=== PATIENT | female | born 1995 | race Caucasian/White ===

== ENCOUNTER 2018-01-30 23:27 | Observation (INO) | payer OTHER ==
[2018-01-31 00:17] LABS: Appearance,Urine Cloudy (Clear); Bacteria,Urine Occasional /hpf; Bilirubin,Urine Negative (Negative); Blood,Urine Large (Negative); Color,Urine Light Red; Glucose,Urine (UA) Negative (Negative); Ketones,Urine Negative (Negative); Leukocyte Esterase,Urine Large (Negative); Mucus,Urine Rare /hpf; Nitrite,Urine Negative (Negative); Protein,Urine 2+ (Negative); RBC,Urine >182 /hpf (0-5); Specific Gravity,Urine 1.013 (1.001-1.035); Squamous Epithelial Cell,Urine 49 /hpf (0-4); Urobilinogen,Urine <2.0 mg/dL (<2.0); WBC,Urine 25 /hpf (0-5)
[2018-01-31] MEDS ORDERED: SODIUM CHLORIDE 0.9% 1,000 ML IV ONE (01:04)
[2018-01-31] MEDS: SODIUM CHLORIDE 0.9% 1,000 ML IV SCH ×2 (01:28→17:29)
[2018-01-31 01:33] LABS: Basophils # (A) 0.1 k/uL (0-0.2); Basophils % (A) 1 %; Eosinophils # (A) 0.4 k/uL (0-0.7); Eosinophils % (A) 4 %; HCT 39.6 % (34.0-46.0); HGB 13.2 gm/dL (11.4-16.0); Lymphocytes % (A) 29 %; MCH 28.3 pg (25.0-35.0); MCHC 33.4 g/dL (31.0-37.0); MCV 84.8 fL (80.0-100.0); Mean Platelet Volume 7.3; Monocytes # (A) 0.4 k/uL (0-1.0); Monocytes % (A) 3 %; Neutrophils # (A) 6.6 k/uL (1.3-7.7); Neutrophils % (A) 63 %; Platelet Count 234 k/uL (150-450); RBC 4.67 m/uL (3.80-5.40); RDW 13.8 % (11.5-15.5); WBC 10.5 k/uL (3.8-10.6)
[2018-01-31 01:41] LABS: Albumin 4.2 g/dL (3.5-5.0); Calcium 9.6 mg/dL (8.4-10.2); Potassium 3.7 mmol/L (3.5-5.1); Total Bilirubin 0.3 mg/dL (0.2-1.3); Total Protein 7.5 g/dL (6.3-8.2)
--- NOTE | 2018-01-31 01:43 | ED ---
Female Urogenital HPI - General Chief complaint: Urogenital Stated complaint: Female Time Seen by Provider: 01/31/18 00:34 Source: patient, RN notes reviewed, old records reviewed Mode of arrival: ambulatory Limitations: no limitations - History of Present Illness Initial comments: This patient is a 22-year-old female presents raise department today she complained of blood in urine for the past 4 days. She states she has no pain when she urinates. Does not feel like a UTI. She states she has no back pain. She does relate that her family has a history of polycystic kidney disease. She has never been tested for PCKD. Patient denies any recent fever, chills, shortness of breath, chest pain, back pain, abdominal pain, nausea vomiting, numbness or tingling, dysuria, constipation or diarrhea, headaches or visual changes, or any other current symptoms - Related Data Previous Rx's Medication Instructions Recorded Nitrofurantoin Monohyd/M-Cryst 100 mg PO Q12HR #14 cap 07/21/15 [Macrobid] Phenazopyridine HCl [Pyridium] 100 mg PO TID PRN #6 tab 07/21/15 Allergies Allergy/AdvReac Type Severity Reaction Status Date / Time No Known Allergies Allergy Verified 07/20/15 22:38 Review of Systems ROS Statement: Those systems with pertinent positive or pertinent negative responses have been documented in the HPI. ROS Other: All systems not noted in ROS Statement are negative. Past Medical History Past Medical History: No Reported History History of Any Multi-Drug Resistant Organisms: None Reported Past Surgical History: Adenoidectomy, Tonsillectomy Past Anesthesia/Blood Transfusion Reactions: No Reported Reaction Past Psychological History: No Psychological Hx Reported Smoking Status: Never smoker Past Alcohol Use History: None Reported Past Drug Use History: None Reported - Past Family History Mother Family Medical History: Cancer Additional Family Medical History / Comment(s): General Exam - General Exam Comments Initial Comments: Pleasant 22-year-old female. No distress. Limitations: no limitations General appearance: alert, in no apparent distress Head exam: Present: atraumatic, normocephalic, normal inspection Eye exam: Present: normal appearance, PERRL, EOMI. Absent: scleral icterus, conjunctival injection, periorbital swelling ENT exam: Present: normal exam, mucous membranes moist Neck exam: Present: normal inspection. Absent: tenderness, meningismus, lymphadenopathy Respiratory exam: Present: normal lung sounds bilaterally. Absent: respiratory distress, wheezes, rales, rhonchi, stridor Cardiovascular Exam: Present: regular rate, normal rhythm, normal heart sounds. Absent: systolic murmur, diastolic murmur, rubs, gallop, clicks GI/Abdominal exam: Present: soft, normal bowel sounds. Absent: distended, tenderness, guarding, rebound, rigid Extremities exam: Present: normal inspection, full ROM, normal capillary refill. Absent: tenderness, pedal edema, joint swelling, calf tenderness Back exam: Present: normal inspection Neurological exam: Present: alert, oriented X3, CN II-XII intact Psychiatric exam: Present: normal affect, normal mood Course Vital Signs 01/30/18 23:49 Temperature 97.3 F L Pulse Rate 89 Respiratory 16 Rate Blood Pressure 129/89 O2 Sat by Pulse 98 Oximetry Medical Decision Making - Medical Decision Making This pleasant 22-year-old female presents emergency room with bloody urine for the past 4 days.. Masses was obtained and shows over 182 red blood cells, 30 white blood cells. It is contaminated with multiple squamous epithelial cells. She states that she has no pain with this blood in her urine. No dysuria. No back pain. I discussed etiologies would likely be related to infection, kidney stone or kidney disease. She patient then related that she has a family history of polycystic injury disease but is never been tested. The spleen patient was given IV fluids and lab work obtained. Patient's BUN/creatinine are noted to be slightly elevated. CAT scan of the abdomen and pelvis was performed without contrast. Evidence of multiple cysts with bilateral kidneys. I did inform the patient and she is very distraught about the finding of polycystic kidney disease as for her as well. I discussed that this have elevated creatinine at like the patient to be admitted for IV fluids, and consult to nephrology for management. Patient agrees to admission. Also we did do a culture of the urine for the rib and white blood cells. Per . we'll start the patient on Rocephin to cover for urinary tract infection. - Lab Data Result diagrams: 01/31/18 01:24 01/31/18 01:24 Lab Results 01/30/18 01/30/18 01/31/18 Range/Units 23:53 23:53 01:24 WBC (3.8-10.6) k/uL RBC (3.80-5.40) m/uL Hgb (11.4-16.0) gm/dL Hct (34.0-46.0) % MCV (80.0-100.0) fL MCH (25.0-35.0) pg MCHC (31.0-37.0) g/dL RDW (11.5-15.5) % Plt Count (150-450) k/uL Neutrophils % % Lymphocytes % % Monocytes % % Eosinophils % % Basophils % % Neutrophils # (1.3-7.7) k/uL Lymphocytes # (1.0-4.8) k/uL Monocytes # (0-1.0) k/uL Eosinophils # (0-0.7) k/uL Basophils # (0-0.2) k/uL Sodium 143 (137-145) mmol/L Potassium 3.7 (3.5-5.1) mmol/L Chloride 105 (98-107) mmol/L Carbon Dioxide 27 (22-30) mmol/L Anion Gap 11 mmol/L BUN 24 H (7-17) mg/dL Creatinine 1.70 H (0.52-1.04) mg/dL Est GFR (CKD-EPI)AfAm 49 (>60 ml/min/1.73 sqM) Est GFR (CKD-EPI)NonAf 42 (>60 ml/min/1.73 sqM) Glucose 96 (74-99) mg/dL Calcium 9.6 (8.4-10.2) mg/dL Total Bilirubin 0.3 (0.2-1.3) mg/dL AST 20 (14-36) U/L ALT 21 (9-52) U/L Alkaline Phosphatase 69 (38-126) U/L Total Protein 7.5 (6.3-8.2) g/dL Albumin 4.2 (3.5-5.0) g/dL Amylase 67 (30-110) U/L Lipase 222 (23-300) U/L Urine Color Light Red Urine Appearance Cloudy H (Clear) Urine pH 6.0 (5.0-8.0) Ur Specific [place] 1.013 (1.001-1.035) Urine Protein 2+ H (Negative) Urine Glucose (UA) Negative (Negative) Urine Ketones Negative (Negative) Urine Blood Large H (Negative) Urine Nitrite Negative (Negative) Urine Bilirubin Negative (Negative) Urine Urobilinogen <2.0 (<2.0) mg/dL Ur Leukocyte Esterase Large H (Negative) Urine RBC >182 H (0-5) /hpf Urine WBC 25 H (0-5) /hpf Urine WBC Clumps Many H (None) /hpf Ur Squamous Epith Cells 49 H (0-4) /hpf Urine Bacteria Occasional H (None) /hpf Urine Mucus Rare H (None) /hpf Urine HCG, Qual Not Detected (Not Detectd) 01/31/18 Range/Units 01:24 WBC 10.5 (3.8-10.6) k/uL RBC 4.67 (3.80-5.40) m/uL Hgb 13.2 (11.4-16.0) gm/dL Hct 39.6 (34.0-46.0) % MCV 84.8 (80.0-100.0) fL MCH 28.3 (25.0-35.0) pg MCHC 33.4 (31.0-37.0) g/dL RDW 13.8 (11.5-15.5) % Plt Count 234 (150-450) k/uL Neutrophils % 63 % Lymphocytes % 29 % Monocytes % 3 % Eosinophils % 4 % Basophils % 1 % Neutrophils # 6.6 (1.3-7.7) k/uL Lymphocytes # 3.0 (1.0-4.8) k/uL Monocytes # 0.4 (0-1.0) k/uL Eosinophils # 0.4 (0-0.7) k/uL Basophils # 0.1 (0-0.2) k/uL Sodium (137-145) mmol/L Potassium (3.5-5.1) mmol/L Chloride (98-107) mmol/L Carbon Dioxide (22-30) mmol/L Anion Gap mmol/L BUN (7-17) mg/dL Creatinine (0.52-1.04) mg/dL Est GFR (CKD-EPI)AfAm (>60 ml/min/1.73 sqM) Est GFR (CKD-EPI)NonAf (>60 ml/min/1.73 sqM) Glucose (74-99) mg/dL Calcium (8.4-10.2) mg/dL Total Bilirubin (0.2-1.3) mg/dL AST (14-36) U/L ALT (9-52) U/L Alkaline Phosphatase (38-126) U/L Total Protein (6.3-8.2) g/dL Albumin (3.5-5.0) g/dL Amylase (30-110) U/L Lipase (23-300) U/L Urine Color Urine Appearance (Clear) Urine pH (5.0-8.0) Ur Specific [place] (1.001-1.035) Urine Protein (Negative) Urine Glucose (UA) (Negative) Urine Ketones (Negative) Urine Blood (Negative) Urine Nitrite (Negative) Urine Bilirubin (Negative) Urine Urobilinogen (<2.0) mg/dL Ur Leukocyte Esterase (Negative) Urine RBC (0-5) /hpf Urine WBC (0-5) /hpf Urine WBC Clumps (None) /hpf Ur Squamous Epith Cells (0-4) /hpf Urine Bacteria (None) /hpf Urine Mucus (None) /hpf Urine HCG, Qual (Not Detectd) - Radiology Data Radiology results: report reviewed Physical x-rays reviewed and within normal limits. Large lobulated kidneys consistent with adult type polycystic kidney disease. This appears to be similar to old computed tomography scan. Multiple bilateral renal colliculi and are probably increased in number and size compared to old exam. No evidence of renal obstruction. Normal appendix noted. Disposition Clinical Impression: Polycystic kidney disease, Urinary tract infection, Decreased GFR Disposition: ADMITTED IP TO THIS [facility] Condition: Stable Referrals: None,Stated [Primary Care Provider] - 1-2 days Time of Disposition: 02:13
--- NOTE | 2018-01-31 02:01 | CT ---
EXAMINATION TYPE: CT abdomen pelvis wo con DATE OF EXAM: 01/31/2018 COMPARISON: NONE HISTORY: Blood in urine, pain CT DLP: 574.60 mGycm Automated exposure control for dose reduction was used. TECHNIQUE: Helical acquisition of images was performed from the lung bases through the pelvis. FINDINGS: Lung bases are clear. There is no pleural effusion. There is no pericardial effusion. Liver spleen pancreas gallbladder appear normal. Bile ducts are not dilated. There is no adrenal mass. There is lobulated contour both kidneys consistent with multiple cysts. The re are bilateral renal multiple calculi. These measure up to 6 mm. Ureters do not appear dilated. There is an IUD. Bladder distends smoothly. There is no free fluid. I see no intestinal wall thickeni ng. There are no dilated loops. There is no sign of appendicitis. Appendix appears normal. I see no b sheyla destructive process. There is no retroperitoneal adenopathy. IMPRESSION: ENLARGED LOBULATED KIDNEYS CONSISTENT WITH ADULT TYPE POLYCYSTIC KIDNEY DISEASE. THIS APPEARS SIMILAR TO OLD CT SCAN. MULTIPLE BILATERAL RENAL CALCULI ARE PROBABLY INCREASED IN NUMBER AND SIZE COMPARED TO OLD EXAM. NO EVIDENCE OF RENAL OBSTRUCTION. NORMAL APPENDIX.
[2018-01-31] MEDS ORDERED: cefTRIAXone IN SWFI 1,000 MG/10 ML SYRINGE IVP STA (02:09)
[2018-01-31] MEDS ORDERED: NALOXONE 0.4 MG/ML 1 ML VIAL IV PRN (02:14)
[2018-01-31] MEDS ORDERED: Acetaminophen-Codeine 300-30mg TAB PO PRN (02:14)
[2018-01-31] MEDS ORDERED: ACETAMINOPHEN TAB 325 MG TAB PO PRN (02:14)
[2018-01-31] MEDS ORDERED: oxyCODONE-APAP 5-325MG 1 EACH TAB PO PRN (02:14)
[2018-01-31] MEDS ORDERED: ONDANSETRON 4 MG/2 ML VIAL IVP PRN (02:14)
--- NOTE | 2018-01-31 03:55 | P.HPIM ---
History of Present Illness H&P Date: 01/31/18 Chief Complaint: blood in the urine This is a 22-year-old female without any significant past medical history currently not taking any medications who came to emergency department with complaint of blood in the urine. Problem started about 3 days ago. Blood is visible in the urine with every urination and throat urination. She denies any flank pain, burning with urination, straining, suprapubic pain, vaginal bleeding. She also denies any fever chills nausea or vomiting. Patient has IUD and certain that she is not vaginal bleeding. She denies any previous episodes of blood in her urine. Denies any trauma or injuries. Eyes taking any NSAIDs or any other medications including czoy-dxy-urueyyi medications. Eyes any previous problems with bleeding or easy bruising. He does not have a primary care doctor and does not have any regular medical follow-up circumflex checkups. In the emergency department her urine analysis show significant amount of red blood cells, leukocyte esterase, WBCs in the urine. Blood work was significant for elevated creatinine to 1.7 and the last one was normal about [address] of abdomen and pelvis showed enlarged polycystic kidneys compatible with adult polycystic kidney disease. Patient states that her brother had similar condition and that he last year at the age of 21. She is not aware of any other family members having any kidney problems or being on dialysis. Otherwise patient noticed some frontal headaches for the last few days but no other complaints. Review of Systems Constitutional: Denies anorexia, Denies chills, Denies fatigue, Denies fever, Denies malaise, Denies night sweats Eyes: denies blurred vision, denies diplopia, denies photophobia, denies loss of vision Ears, nose, mouth and throat: Reports headache, Denies epistaxis Cardiovascular: Denies chest pain, Denies leg edema, Denies lightheadedness, Denies paroxysmal nocturnal dyspnea Respiratory: Denies cough, Denies dyspnea Gastrointestinal: Denies abdominal pain, Denies constipation, Denies diarrhea, Denies heartburn Genitourinary: Reports as per HPI Menstruation: Reports as per HPI Musculoskeletal: Denies frequent falls, Denies hot joints, Denies redness of joints Integumentary: Denies rash Neurological: Denies change in speech, Denies double vision, Denies loss of vision Psychiatric: Denies anxiety, Denies depression Endocrine: Denies cold intolerance, Denies fatigue, Denies flushing, Denies heat intolerance Hematologic/Lymphatic: Denies easy bleeding Past Medical History Past Medical History: No Reported History History of Any Multi-Drug Resistant Organisms: None Reported Past Surgical History: Adenoidectomy, Tonsillectomy Past Anesthesia/Blood Transfusion Reactions: No Reported Reaction Past Psychological History: No Psychological Hx Reported Smoking Status: Never smoker Past Alcohol Use History: None Reported Past Drug Use History: None Reported - Past Family History Mother Family Medical History: Cancer Additional Family Medical History / Comment(s): Medications and Allergies Home Medications Medication Instructions Recorded Confirmed Type Nitrofurantoin Monohyd/M-Cryst 100 mg PO Q12HR #14 cap 07/21/15 Rx [Macrobid] Phenazopyridine HCl [Pyridium] 100 mg PO TID PRN #6 tab 07/21/15 Rx Allergies Allergy/AdvReac Type Severity Reaction Status Date / Time No Known Allergies Allergy Verified 07/20/15 22:38 Physical Exam Vitals: Vital Signs Temp Pulse Resp BP Pulse Ox 01/31/18 03:24 75 18 124/75 100 01/30/18 23:49 97.3 F L 89 16 129/89 98 Intake and Output 01/30/18 01/30/18 01/31/18 14:59 22:59 06:59 Other: Weight 77.111 kg Patient Weight 01/31/18 06:59 Weight 77.111 kg - Constitutional General appearance: no acute distress, obese - EENT Eyes: EOMI, PERRLA, no scleral icterus ENT: normal oropharynx - Neck Neck: no lymphadenopathy, no thyromegaly - Respiratory Respiratory: bilateral: CTA - Cardiovascular Rhythm: regular Heart sounds: normal: S1, S2 - Gastrointestinal General gastrointestinal: normal bowel sounds, no organomegaly, soft - Integumentary Integumentary: pale, no rash - Neurologic Neurologic: CNII-XII intact - Musculoskeletal Musculoskeletal: strength equal bilaterally - Psychiatric Psychiatric: A&O x's 3, appropriate affect Results CBC & Chem 7: 01/31/18 01:24 01/31/18 01:24 Labs: Abnormal Lab Results - Last 24 Hours (Table) 01/30/18 01/31/18 Range/Units 23:53 01:24 BUN 24 H (7-17) mg/dL Creatinine 1.70 H (0.52-1.04) mg/dL Urine Appearance Cloudy H (Clear) Urine Protein 2+ H (Negative) Urine Blood Large H (Negative) Ur Leukocyte Esterase Large H (Negative) Urine RBC >182 H (0-5) /hpf Urine WBC 25 H (0-5) /hpf Urine WBC Clumps Many H (None) /hpf Ur Squamous Epith Cells 49 H (0-4) /hpf Urine Bacteria Occasional H (None) /hpf Urine Mucus Rare H (None) /hpf CT scan - abdomen: report reviewed Thrombosis Risk Factor Assmnt - DVT/VTE Prophylaxis DVT/VTE Prophylaxis: Mechanical Prophylaxis ordered Assessment and Plan (1) Acute kidney injury Narrative/Plan: She has elevated creatinine with normal baseline creatinine 4 years ago. This could represent C daily due to polycystic kidney disease versus AK Plan is for IV fluid hydration, strict I's and O's, postvoiding residual check, nephrology consult Current Visit: Yes Status: Acute Priority: High Code(s): N17.9 - ACUTE KIDNEY FAILURE, UNSPECIFIED SNOMED Code(s): 70984553 (2) Polycystic kidney disease Narrative/Plan: This is a new diagnosis Nephrology has been consulted Possible component of urinary tract infection as well without systemic toxicity Will change antibiotic to oral ciprofloxacin renal function adjusted No family history of renal problems except in her brother, no history of known aneurysms or intracranial bleeding but given the history of a headache for a few days may consider screening Current Visit: Yes Status: Acute Priority: High Code(s): Q61.3 - POLYCYSTIC KIDNEY, UNSPECIFIED SNOMED Code(s): 01177425
[2018-01-31] MEDS: CIPROFLOXACIN HCL 250 MG TAB PO SCH (10:26)
--- NOTE | 2018-01-31 19:33 | P.PN ---
Progress Note - Text Progress Note Date: 01/31/18 Hospitalist interval note Called by nursing as patient wanted to be discharged. Patient has stated Dr. Mathur subjective likely go home today however no formal dictation is available from Dr. Mathur at this time. Nursing had called Dr. Mathur who stated that she did say patient may be discharged this evening, but left discretion to the admitting physician. After review of her records it appears patient likely has polycystic kidney disease and a urinary tract infection. There could be concern for possible infected cyst. She also has no insurance and no family doctor for follow-up labs. When up and discussed with the patient that I think it would be in her best benefit to stay overnight tonight with repeat kidney function in the morning. We can also assist with having case management social work meet with her tomorrow in regards to obtaining health care insurance and information on free clinic. Patient still interested in leaving, I stated that I did not think this was in her best interest and we need to ensure that her kidney function is stable. We are also waiting on urine cultures. Patient is not stable to discharge at this point in time but likely will be able to go home at some point tomorrow. I will place consult for social work and case management. Giovanna Merchant, DO
--- NOTE | 2018-01-31 22:32 | CONS ---
CONSULTATION DATE OF SERVICE: 01/31/2018. REASON FOR CONSULT: Renal failure, hematuria. HISTORY OF PRESENT ILLNESS: Patient is a 22-year-old female who was admitted to the hospital with a history of blood in her urine, which she has had on and off for about 2 to 3 days. The patient denied any pain. She denied any previous history of blood in the urine. Recently patient has not had any urinary tract infections. She had a CT scan of the abdomen and pelvis, which showed polycystic kidneys. Both kidneys were enlarged. There were bilateral renal calculi seen also. Serum creatinine was 1.7 mg/dL. We have a previous creatinine in 2013 of 1.07. Currently patient is completely asymptomatic and is asking to go home. Her brother also had polycystic kidney disease and one of her aunts, who is on hemodialysis, has polycystic kidney disease as well. PAST MEDICAL HISTORY: None. SURGICAL HISTORY: Adenoidectomy and tonsillectomy. SOCIAL HISTORY: Negative for smoking, drug abuse, or alcohol abuse. HOME MEDICATIONS: Macrobid recently. ALLERGIES: None. REVIEW OF SYSTEMS: As per HPI. Other systems negative. PHYSICAL EXAMINATION: Patient is comfortable, awake, not in any acute distress. Blood pressure is 128/80, heart rate 70 per minute. Patient is afebrile. Examination of the heart S1, S2. Examination lungs bilateral breath sounds are heard. Abdomen is soft, nontender. Examination of the lower extremities shows no evidence of edema. [employer] exam is grossly intact. LAB: Serum creatinine 1.7, sodium 143, potassium 3.7, hemoglobin 13.2 g/dL. UA shows 2+ protein, leukocyte esterase large, WBCs 25. ASSESSMENT: 1. Acute kidney injury, most likely prerenal. May continue with IV fluids, however, patient is asking to be discharged. She could go home this evening and follow up in the office in 1 week. She should increase her oral fluid intake and continue with the antibiotics to complete a course. We will follow up on the urine cultures. 2. Polycystic kidney disease with positive family history including an aunt on dialysis. The patient will need to follow up as outpatient. 3. Nephrolithiasis noted on CT scan, currently asymptomatic with no evidence of hydronephrosis. 4. Hematuria, most likely associated with bleeding from with cysts. Currently patient is not in pain. Her UA will need to be repeated down the road in about 2 weeks time. I did notice that she also had trace protein and 1+ protein in 2013 and 2014. This will need to be worked up further as outpatient. PLAN: Continue IV fluids. If patient stays overnight, we will repeat her labs in a.m. and continue with the antibiotics. If she is discharged, she needs to follow up as outpatient in about 4 to 5 days time with repeat labs to be done as outpatient. Patient should maintain good oral fluid intake, and continue the course of the antibiotics. We will follow up on her urine culture results. Thank you for this consultation. We will continue to follow the patient with you during her hospitalization. MMODL / IJN: [id number] /
[2018-02-01] MEDS: SODIUM CHLORIDE 0.9% 1,000 ML IV SCH (02:33)
[2018-02-01 02:55] VITALS: PULSE 68; RESP 16
[2018-02-01 07:36] LABS: Calcium 8.6 mg/dL (8.4-10.2); Potassium 4.3 mmol/L (3.5-5.1)
[2018-02-01] MEDS: CIPROFLOXACIN HCL 250 MG TAB PO SCH (08:27)
[2018-02-01 08:49] VITALS: BP 114/72; TEMP 97.9
--- NOTE | 2018-02-01 14:14 | P.DS ---
Providers Date of admission: 01/31/18 02:02 Attending physician: Giovanna Santiago DO Consults: 01/31/18 02:14 Consult Physician Stat Consulting Provider: Mili Mathur Reason/Comments: New finding PCKD, Decreased GFR Do you want consulting provider notified?: Yes, Notify in am Primary care physician: Stated None Hospital Course: 22-year-old female without any significant past medical history, not taking any medications who came to emergency department with complaint of blood in the urine. Problem started about 3 days prior to admission. Blood is visible in the urine and is present with every urination. She denied any flank pain, burning with urination, straining, suprapubic pain, vaginal bleeding. She also denied any fever, chills, nausea or vomiting. Patient has IUD and was certain that this is not vaginal bleeding. She denied any previous episodes of blood in her urine. Denied any trauma or injuries. Denied taking any NSAIDs or any other medications including plft-kcr-rpstlax medications. She denied any previous problems with bleeding or easy bruising. He does not have a primary care doctor and does not have any regular medical follow-up circumflex checkups. In the emergency department her urine analysis showed significant amount of red blood cells, leukocyte esterase, WBCs in the urine. Blood work was significant for elevated creatinine to 1.7 and the last one was normal about [address] of abdomen and pelvis showed enlarged polycystic kidneys compatible with adult polycystic kidney disease. Patient states that her brother had similar condition and that he last year at the age of 21. She is not aware of any other family members having any kidney problems or being on dialysis. Otherwise patient noticed some frontal headaches for the last few days but no other complaints. During the hospitalization patient was treated with IV fluids. Her kidney function improved to a creatinine level of 1.3 on the day of discharge. She was seen in consultation with nephrology who advised follow-up in the office. Patient told me that ''doctors in this area killed'' her brother who had polycystic kidney disease. She does not want to follow up with any physician in this area. She is planning to follow up with somebody in [facility]. She was that she needs follow-up with her primary care physician as well as a operations executive. She was eventually discharged home in a stable condition. Time for discharge 35 minutes. Patient Condition at Discharge: Stable Plan - Discharge Summary Discharge Rx Participant: No New Discharge Prescriptions: New Ciprofloxacin HCl 500 mg PO BID 3 Days #6 tab Discharge Medication List Ciprofloxacin HCl 500 mg PO BID 3 Days #6 tab 02/01/18 [Rx] Follow up Appointment(s)/Referral(s): None,Stated [Primary Care Provider] - 1-2 days Activity/Diet/Wound Care/Special Instructions: [facility] #[phone], address [address] [place] [address]. FOLLOW UP WITH DR MATHUR IN ONE WEEK FOLLOW UP SOONER IF PROBLEMS OR CONCERNS Discharge Disposition: HOME SELF-CARE
--- NOTE | 2018-02-02 19:58 | PN ---
PROGRESS NOTE DATE OF SERVICE: 02/01/2018 Patient is seen for followup for acute kidney injury which was mainly prerenal, currently improved. She was also found to have multiple bilateral renal cysts with enlarged kidneys with a diagnosis of polycystic kidney disease. Patient has been treated empirically with antibiotics. Her urine culture did not show any significant growth. On examination today, blood pressure was 108/67, heart rate 68 per minute. Patient is afebrile. EXAMINATION OF THE HEART: S1, S2. EXAMINATION OF LUNGS: Bilateral breath sounds are heard. ABDOMEN: Soft, non-tender. There is no flank tenderness noted. Examination of lower extremities shows no evidence of edema. SCHEME TECHNICIAN exam is grossly intact. Labs show sodium 142, potassium 4.3, chloride 112, BUN 19, serum creatinine 1.53, hemoglobin 13.2 g/dL from yesterday. ASSESSMENT: 1. Acute kidney injury, prerenal, currently improved with IV hydration. 2. Chronic kidney disease secondary to polycystic kidney disease with previous creatinine at about 1.07 in 2013. I am not sure what her current baseline is at this time. We will continue to follow her as outpatient. She is probably at stage II. 3. Polycystic kidney disease with positive family history. 4. Hematuria, most likely secondary to bleeding cyst. No specific treatment apart from conservative management at this time. Continue to avoid NSAIDs. PLAN: Patient is stable for discharge from nephrology standpoint. Will follow up as outpatient in about one week's time. ABI / RENATE: [id number] /
== END 2018-02-01 11:33 | disposition home or self-care (01) ==
LOC: EC 23:27 → 3OBS 01-31 02:02 → 6PED 01-31 14:34
PROVIDERS: ADMIT Internal Medicine; ATTEND Internal Medicine
DX: N17.9 Acute kidney failure, unspecified (principal); Q61.2 Polycystic kidney, adult type; N20.0 Calculus of kidney; R51 Headache; Z82.71 Family history of polycystic kidney
CPT/HCPCS: 36415; 74176; 80048; 80053; 81001; 81025; 82150; 83690; 84156; 84300; 84540; 85025; 87086; 96361; 96374; 99285

== ENCOUNTER 2018-04-16 10:02 | Emergency (ER) | payer OTHER ==
[2018-04-16 10:15] VITALS: RESP 18
[2018-04-16] MEDS ORDERED: KETOROLAC 60 MG/2 ML VIAL IM STA (11:11)
--- NOTE | 2018-04-16 11:14 | ED ---
General Adult HPI - General Chief complaint: Abdominal Pain Stated complaint: Back Pain Time Seen by Provider: 04/16/18 10:15 Source: patient, RN notes reviewed Mode of arrival: ambulatory Limitations: no limitations - History of Present Illness Initial comments: This is a 22-year-old female presents emergency Department complaining of lower back pain bilaterally. Patient also states she has had some urinary frequency. Patient states she would like to have her kidney function tested because she was just recently diagnosed with polycystic kidney disease and was not able to follow with her physician. Patient states when she twists or stands up straight her lower back hurts more. Patient states it's not in the CVA area when I point to that area. Patient states it's lower. Patient denies any fever chills. Patient denies any new sexual partners. Patient denies any vaginal discharge or bleeding or discomfort. Patient denies any nausea vomiting or diarrhea. Patient denies to me any abdominal pain. - Related Data Previous Rx's Medication Instructions Recorded Ciprofloxacin HCl 500 mg PO BID 3 Days #6 tab 02/01/18 Sulfamethox-Tmp 800-160Mg [Bactrim 1 each PO Q12HR #14 tab 04/16/18 DS 800-160 mg] Allergies Allergy/AdvReac Type Severity Reaction Status Date / Time No Known Allergies Allergy Verified 04/16/18 10:15 Review of Systems ROS Statement: Those systems with pertinent positive or pertinent negative responses have been documented in the HPI. ROS Other: All systems not noted in ROS Statement are negative. Past Medical History Past Medical History: No Reported History, Syncope Additional Past Medical History / Comment(s): seizure w/syncopal episode 2012 and passed out few times when 2014, uti, "never had chicken pox", has had peircings to ears, naval,tongue, polycystic kidney disease History of Any Multi-Drug Resistant Organisms: None Reported Past Surgical History: Adenoidectomy, Tonsillectomy Additional Past Surgical History / Comment(s): nasal reconstruction Past Anesthesia/Blood Transfusion Reactions: Postoperative Nausea & Vomiting ( PONV) Past Psychological History: No Psychological Hx Reported Smoking Status: Current every day smoker Past Alcohol Use History: None Reported Past Drug Use History: None Reported - Past Family History Father Family Medical History: No Reported History Mother Family Medical History: Cancer Additional Family Medical History / Comment(s): melanoma. General Exam - General Exam Comments Initial Comments: GENERAL: Patient is well-developed and well-nourished. Patient is nontoxic and well- hydrated and is in mild distress. Patient was sleeping when I walked into the room. ENT: Neck is soft and supple. No significant lymphadenopathy is noted. Oropharynx is clear. Moist mucous membranes. Neck has full range of motion without eliciting any pain. EYES: The sclera were anicteric and conjunctiva were pink and moist. Extraocular movements were intact and pupils were equal round and reactive to light. Eyelids were unremarkable. PULMONARY: Unlabored respirations. Good breath sounds bilaterally. No audible rales rhonchi or wheezing was noted. CARDIOVASCULAR: There is a regular rate and rhythm without any murmurs gallops or rubs. ABDOMEN: Soft and nontender with normal bowel sounds. No palpable organomegaly was noted. There is no palpable pulsatile mass. SKIN: Skin is clear with no lesions or rashes and otherwise unremarkable. NEUROLOGIC: Patient is alert and oriented x3. Cranial nerves II through XII are grossly intact. Motor and sensory are also intact. Normal speech, volume and content. Symmetrical smile. MUSCULOSKELETAL: Normal extremities with adequate strength and full range of motion. LYMPHATICS: No significant lymphadenopathy is noted PSYCHIATRIC: Normal psychiatric evaluation. Limitations: no limitations Course Vital Signs 04/16/18 10:13 Temperature 98.0 F Pulse Rate 62 Respiratory 18 Rate Blood Pressure 139/85 O2 Sat by Pulse 98 Oximetry Medical Decision Making - Medical Decision Making Urine was questionably infected. I gave the patient shot of Rocephin and sent home on antibiotics to follow-up with a primary medical care doctor - Lab Data Result diagrams: 04/16/18 11:21 Lab Results 04/16/18 04/16/18 04/16/18 Range/Units 11:21 11:21 11:21 Sodium 144 (137-145) mmol/L Potassium 3.8 (3.5-5.1) mmol/L Chloride 108 H (98-107) mmol/L Carbon Dioxide 22 (22-30) mmol/L Anion Gap 14 mmol/L BUN 22 H (7-17) mg/dL Creatinine 1.80 H (0.52-1.04) mg/dL Est GFR (CKD-EPI)AfAm 45 (>60 ml/min/1.73 sqM) Est GFR (CKD-EPI)NonAf 39 (>60 ml/min/1.73 sqM) Glucose 88 (74-99) mg/dL Calcium 9.1 (8.4-10.2) mg/dL Total Bilirubin 0.3 (0.2-1.3) mg/dL AST 21 (14-36) U/L ALT 33 (9-52) U/L Alkaline Phosphatase 68 (38-126) U/L Total Protein 7.0 (6.3-8.2) g/dL Albumin 4.2 (3.5-5.0) g/dL Urine Color Light Yellow Urine Appearance Cloudy H (Clear) Urine pH 6.0 (5.0-8.0) Ur Specific [place] 1.010 (1.001-1.035) Urine Protein 2+ H (Negative) Urine Glucose (UA) Negative (Negative) Urine Ketones Negative (Negative) Urine Blood Small H (Negative) Urine Nitrite Negative (Negative) Urine Bilirubin Negative (Negative) Urine Urobilinogen <2.0 (<2.0) mg/dL Ur Leukocyte Esterase Large H (Negative) Urine RBC 39 H (0-5) /hpf Urine WBC 33 H (0-5) /hpf Ur Squamous Epith Cells 25 H (0-4) /hpf Urine Mucus Rare H (None) /hpf Urine HCG, Qual Not Detected (Not Detectd) Disposition Clinical Impression: Lumbar strain, Urinary tract infection, Renal insufficiency Disposition: HOME SELF-CARE Instructions: Urinary Tract Infection in Women (ED) Prescriptions: Sulfamethox-Tmp 800-160Mg [Bactrim DS 800-160 mg] 1 each PO Q12HR #14 tab Is patient prescribed a controlled substance at d/c from ED?: No Referrals: None,Stated [Primary Care Provider] - 1-2 days Time of Disposition: 12:57
[2018-04-16 11:39] LABS: Appearance,Urine Cloudy (Clear); Bilirubin,Urine Negative (Negative); Blood,Urine Small (Negative); Color,Urine Light Yellow; Glucose,Urine (UA) Negative (Negative); Ketones,Urine Negative (Negative); Leukocyte Esterase,Urine Large (Negative); Mucus,Urine Rare /hpf; Nitrite,Urine Negative (Negative); Protein,Urine 2+ (Negative); RBC,Urine 39 /hpf (0-5); Squamous Epithelial Cell,Urine 25 /hpf (0-4); Urobilinogen,Urine <2.0 mg/dL (<2.0); WBC,Urine 33 /hpf (0-5)
[2018-04-16 11:44] LABS: Albumin 4.2 g/dL (3.5-5.0); Calcium 9.1 mg/dL (8.4-10.2); Potassium 3.8 mmol/L (3.5-5.1); Total Bilirubin 0.3 mg/dL (0.2-1.3)
[2018-04-16 13:06] VITALS: BP 97/49; PULSE 59; TEMP 97.5
== END 2018-04-16 13:06 | disposition home or self-care (01) ==
LOC: EC 10:02
DX: S39.012A Strain of muscle, fascia and tendon of lower back, initial encounter (principal); N39.0 Urinary tract infection, site not specified; N28.9 Disorder of kidney and ureter, unspecified; Q61.3 Polycystic kidney, unspecified; F17.200 Nicotine dependence, unspecified, uncomplicated; X58.XXXA Exposure to other specified factors, initial encounter
CPT/HCPCS: 36415; 80053; 81001; 81025; 99284

== ENCOUNTER → 2020-09-25 | Outpatient (CLI) | payer OTHER ==
--- NOTE | 2020-09-25 16:55 | MR ---
EXAMINATION TYPE: MR angio head wo con DATE OF EXAM: 09/25/2020 COMPARISON: None HISTORY: Autosomal recessive polycystic kidneys TECHNIQUE: Time of flight images focusing on the [place] were performed without contrast. Th ree-dimensional reconstructions performed on an alternate workstation. FINDINGS: Anterior posterior circulation are intact. Left vertebral artery is dominant. There is no e vident aneurysm, dissection, or embolus. IMPRESSION: Normal [place] MRA
== END | disposition home or self-care (01) ==
LOC: RADMRIMAIN 15:38
PROVIDERS: ATTEND Nurse Practitioner Family
DX: Q61.19 Other polycystic kidney, infantile type (principal)
CPT/HCPCS: 70544

== ENCOUNTER → 2021-03-01 | Outpatient (CLI) | payer OTHER ==
[2021-03-01 12:23] LABS: Basophils % (A) 0 %; Eosinophils # (A) 0.3 k/uL (0-0.7); Eosinophils % (A) 3 %; HCT 38.8 % (34.0-46.0); HGB 12.8 gm/dL (11.4-16.0); Lymphocytes # (A) 2.3 k/uL (1.0-4.8); Lymphocytes % (A) 22 %; MCH 29.2 pg (25.0-35.0); MCV 88.7 fL (80.0-100.0); Mean Platelet Volume 7.4; Monocytes # (A) 0.4 k/uL (0-1.0); Monocytes % (A) 4 %; Neutrophils # (A) 7.2 k/uL (1.3-7.7); Neutrophils % (A) 70 %; Platelet Count 237 k/uL (150-450); RBC 4.37 m/uL (3.80-5.40); RDW 13.7 % (11.5-15.5); WBC 10.4 k/uL (3.8-10.6)
[2021-03-01 12:54] LABS: Potassium 4.4 mmol/L (3.5-5.1)
== END | disposition home or self-care (01) ==
LOC: LABPAT 10:57
PROVIDERS: ATTEND Surgery
DX: Z01.818 Encounter for other preprocedural examination (principal); N18.9 Chronic kidney disease, unspecified
CPT/HCPCS: 36415; 80051; 82565; 84520; 85025

== ENCOUNTER 2021-03-02 08:09 | Day surgery (SDC) | payer OTHER ==
[2021-02-24 12:01] VITALS: BMI 33.5
[~2021-03-02 08:09] MED LIST: DEXAMETHASONE SOD PHOSPHATE 4 MG/ML 1 ML VIAL IV ONE; HYDROmorphone 0.5 MG/0.5 ML SYRINGE IVP PRN; LACTATED RINGERS 1,000 ML IV SCH; LIDOCAINE 1% (10MG/ML) FOR IV START INTRADERMA PRN; MIDAZOLAM 2 MG/2 ML VIAL IV PRN; ONDANSETRON 4 MG/2 ML VIAL IVP ONE
[2021-03-02] MEDS ORDERED: IV FLUID CONTINUATION 1,000 ML IV ONE (08:39)
[2021-03-02] MEDS ORDERED: MIDAZOLAM 2 MG/2 ML VIAL IV ONE (09:27)
[2021-03-02] MEDS ORDERED: fentaNYL (PF) 50 MCG/ML 2 ML AMP IV ONE (09:27)
[2021-03-02] MEDS ORDERED: LIDOCAINE 1% INJ 10MG/ML (20 ML MDV) ONE (09:35)
[2021-03-02] MEDS ORDERED: PROPOFOL 10 MG/ML 20 ML VIAL IV ONE (09:35)
[2021-03-02] MEDS ORDERED: fentaNYL (PF) 50 MCG/ML 2 ML AMP ONE (09:35)
[2021-03-02] MEDS ORDERED: ePHEDrine SULFATE/0.9% NACL/PF 50 MG/5 ML SYRINGE IV ONE (09:35)
[2021-03-02] MEDS ORDERED: HEPARIN SODIUM,PORCINE 5,000 UNIT/ML 1 ML VIAL ONE (09:35)
[2021-03-02] MEDS ORDERED: ROPIVACAINE 5 MG/ML 30 ML VIAL ONE (09:35)
[2021-03-02] MEDS ORDERED: ceFAZolin 2 GM in SODIUM CHLORIDE 0.9% 500 ML 500 ML IRRIGATION ONE (10:16)
[2021-03-02] MEDS ORDERED: SODIUM CHLORIDE 0.9% 500 ML 500 ML with HEPARIN SODIUM,PORCINE 5,000 UNIT IV ONE ×2 (10:18)
--- NOTE | 2021-03-02 11:36 | P.OP ---
Date of Procedure: 03/02/21 Preoperative Diagnosis: Polycystic kidney disease, chronic kidney disease Postoperative Diagnosis: Same Procedure(s) Performed: Left upper extremity radiocephalic Darron fistula creation Anesthesia: MAC, regional Surgeon: Oscar Laguerre Estimated Blood Loss (ml): 5 Pathology: none sent Condition: stable Disposition: PACU Indications for Procedure: 25-year-old female with history of polycystic kidney disease who has had chronic kidney disease which is worsening for the several months and is now down to 10% presents to the hospital for creation of a fistula for future dialysis. Description of Procedure: After written and informed consent was obtained from the patient the patient was brought to the operative suite and laid in a supine position. The left arm was prepped and draped in the usual sterile fashion after appropriate anesthesia was performed per the anesthesiologist. Utilizing ultrasound the cephalic vein was visualized and marked and shown to be good size. A small vertical incision was then created with a 15 blade scalpel just proximal to the wrist and dissection was carried down to the radial artery which was dissected free in a circumferential manner. Proximal distal control was then obtained with vessel loops. Attention was then placed back to the cephalic vein which was located and dissected free in a circumferential manner distally to the wrist. At the wrist it was ligated with silk suture. Further dissection was carried around the vein and the vein was brought over to the radial artery. Serial dilation was then performed on the vein and good backbleeding was noted. Patient was administered 3000 units of heparin and the radial artery was clamped at the proximal and distal aspect. Utilizing 11 blade scalpel and arteriotomy was created and extended with [place] scissors. There was good brisk backbleeding noted from the radial artery and pulsatile blood flow visualized from the proximal aspect. The vein was then spatulated and an end-to-side anastomosis was created with a 7-0 Prolene suture. Prior to last sutures being placed the control was released from the vein revealing good backbleeding and distal control on the radial artery was released revealing good back flow. The proximal control was then released and good pulsatile blood flow was visualized in the fistula and final sutures were secured. The area was copiously irrigated with antibiotic solution. Hemostasis was assured. The vessels were then interrogated with Doppler which demonstrated good multiphasic signal distal to the anastomosis as well as positive bruit within the vein consistent with good fistula creation. Under ultrasound there was pulsatile flow noted in the cephalic vein. The incision was then closed in a multilayer fashion. The skin was cleansed and dressings were placed. Patient does procedure well and was sent to PACU for recovery. Plan - Discharge Summary Discharge Rx Participant: Yes New Discharge Prescriptions: No Action No Known Home Medications Discharge Medication List No Known Home Medications 02/24/21 [History] Follow up Appointment(s)/Referral(s): Oscar Laguerre DO [STAFF PHYSICIAN] - 2 Weeks Activity/Diet/Wound Care/Special Instructions: squeezing exercises daily left hand. No heavy lifting >15 lbs x 1 week. Tylenol and motrin for pain Discharge Disposition: HOME SELF-CARE
[2021-03-02 11:38] VITALS: TEMP 96.8
[2021-03-02] MEDS ORDERED: ACETAMINOPHEN IV (For NPO) 1,000 MG/100 ML VIAL IVPB ONE (12:15)
[2021-03-02 12:17] VITALS: RESP 16
[2021-03-02] MEDS ORDERED: ONDANSETRON 4 MG/2 ML VIAL ONE (12:51)
[2021-03-02] MEDS ORDERED: ONDANSETRON 4 MG/2 ML VIAL IVP ONE (12:56)
[2021-03-02 13:00] VITALS: BP 126/87; PULSE 86
--- NOTE | 2021-03-02 14:12 | P.ANPRN ---
Procedure Note - Anesthesia - Nerve Block Performed Left Axillary Single Time Out Performed: Yes ([id number]) Date of Procedure: 03/02/21 Procedure Start Time: :28 Procedure Stop Time: :33 Location of Patient: PreOp Indication: Acute Post-Operative Pain, Requested by Surgeon Specifically requested for management of pain by DrJeanette: Oscar Laguerre Sedation Type: Sedate with meaningful contact maintained Preparation: Sterile Prep Position: Supine Catheter: None Needle Types: Pajunk Needle Gauge: 21 Ultrasound used to visualize needle placement: Yes Ultrasound used to observe medication spread: Yes Injectate: 0.5% Ropivacaine (see comment for volume) Blood Aspirated: No Pain Paresthesia on Injection Noted: No Resistance on Injection: Normal Image Stored and Saved: Yes Events: Uneventful and Well Tolerated (40cc total. 10cc each nerve)
== END 2021-03-02 13:39 | disposition home or self-care (01) ==
LOC: OR 08:09
PROVIDERS: ATTEND Surgery
DX: N18.5 Chronic kidney disease, stage 5 (principal); Q61.3 Polycystic kidney, unspecified; R55 Syncope and collapse; Z90.89 Acquired absence of other organs; Z98.890 Other specified postprocedural states; Z87.891 Personal history of nicotine dependence; Z86.69 Personal history of other diseases of the nervous system and sense organs; Z91.89 Other specified personal risk factors, not elsewhere classified
CPT/HCPCS: 36821; 64417; 81025; 76942; J2250; J1644; J1100; J0690; J2405; J2001; J3010; J2795; J0131; J2704; 64415

== ENCOUNTER 2021-04-20 08:17 | Day surgery (SDC) | payer OTHER ==
[2021-04-20] MEDS ORDERED: SODIUM CHLORIDE 0.9% 1,000 ML IV ONE ×2 (09:16)
[2021-04-20] MEDS ORDERED: SCOPOLAMINE 1.5MG/72HR PATCH TRANSDERM ONE (10:05)
[2021-04-20] MEDS ORDERED: fentaNYL (PF) 50 MCG/ML 2 ML AMP IVP ONE (10:14)
[2021-04-20] MEDS ORDERED: PROPOFOL 10 MG/ML 20 ML VIAL IV ONE (10:47)
[2021-04-20] MEDS ORDERED: KETAMINE 10 MG/ML 20 ML VIAL ONE (10:47)
[2021-04-20] MEDS ORDERED: ceFAZolin 1,000 MG VIAL IRRIGATION ONE (10:47)
[2021-04-20] MEDS ORDERED: HEPARIN SODIUM,PORCINE 5,000 UNIT/ML 1 ML VIAL ONE (10:47)
[2021-04-20] MEDS ORDERED: HEPARIN SODIUM 1,000 UN/ML (10ML VL) IRRIGATION ONE (10:47)
[2021-04-20] MEDS ORDERED: fentaNYL (PF) 50 MCG/ML 2 ML AMP ONE (10:47)
[2021-04-20] MEDS ORDERED: MIDAZOLAM 2 MG/2 ML VIAL ONE (10:47)
[2021-04-20] MEDS ORDERED: ROPIVACAINE 5 MG/ML 30 ML VIAL ONE (10:47)
--- NOTE | 2021-04-20 12:57 | P.OP ---
Date of Procedure: 04/20/21 Preoperative Diagnosis: Chronic kidney disease Postoperative Diagnosis: Same Procedure(s) Performed: Left upper extremity brachiocephalic fistula creation Anesthesia: regional, local Surgeon: Oscar Laguerre Estimated Blood Loss (ml): 10 Pathology: none sent Condition: stable Disposition: PACU Indications for Procedure: 25-year-old female with chronic kidney disease secondary to polycystic kidney disease who underwent previous radiocephalic fistula which failed to mature presents today for possible brachiocephalic versus brachiobasilic fistula creation. She underwent ultrasound of her upper extremity veins which demonstrated good size cephalic vein above the elbow with decent size basilic vein as well. She was instructed that we would make an incision and evaluate both veins hopefully able to use the cephalic vein. Operative Findings: Cephalic vein was large and patent. Basilic vein at the antecubital fossa area was diminutive. Brachial artery was small in nature but good pulsatile flow. Description of Procedure: After written and informed consent was obtained from the patient the patient was brought to the operative suite and laid in a supine position. The left arm was prepped and draped in the usual sterile fashion after appropriate anesthesia was performed per the anesthesiologist. Utilizing ultrasound the cephalic vein was visualized and marked and shown to be good size. A transverse incision was then created with a 15 blade scalpel just proximal to the elbow and dissection was carried down to the brachial artery which was dissected free in a circumferential manner. Proximal & distal control was then obtained with vessel loops. Attention was then placed back to the cephalic vein which was located and dissected free in a circumferential manner and ligated. Further dissection was carried around the vein and the vein was brought over to the brachial artery. Serial dilation was then performed on the vein and good backbleeding was noted. Patient was administered 3000 units of heparin and the radial artery was clamped at the proximal and distal aspect. Utilizing 11 blade scalpel and arteriotomy was created and extended with [place] scissors. There was good brisk backbleeding noted from the brachial artery and pulsatile blood flow visualized from the proximal aspect. The vein was then spatulated and an end-to-side anastomosis was created with a 6-0 Prolene suture. Prior to last sutures being placed the control was released from the vein revealing good backbleeding and distal control on the brachial artery was released revealing good back flow. The proximal control was then released and good pulsatile blood flow was visualized in the fistula and final sutures were secured. The area was copiously irrigated with antibiotic solution. Hemostasis was assured. The vessels were then interrogated with Doppler which demonstrated good multiphasic signal distal to the anastomosis as well as positive bruit within the vein consistent with good fistula creation. Under ultrasound there was pulsatile flow noted in the cephalic vein. There is multiphasic signal noted at the radial and ulnar arteries at the wrist. The incision was then closed in a multilayer fashion. The skin was cleansed and dressings were placed. Patient does procedure well and was sent to PACU for recovery. Plan - Discharge Summary Discharge Rx Participant: No New Discharge Prescriptions: No Action No Known Home Medications Discharge Medication List No Known Home Medications 02/24/21 [History]
[2021-04-20 13:16] VITALS: TEMP 97.9
--- NOTE | 2021-04-20 13:28 | P.ANPRN ---
Procedure Note - Anesthesia - Nerve Block Performed Left Supraclavicular Single Time Out Performed: Yes Date of Procedure: 04/20/21 Procedure Start Time: 10:08 Procedure Stop Time: 10:15 Location of Patient: PreOp Indication: Acute Post-Operative Pain, Dx/Pain Location, Requested by Surgeon Specifically requested for management of pain by : Oscar Laguerre Sedation Type: Sedate with meaningful contact maintained Preparation: Sterile Prep Position: Supine Catheter: None Needle Types: Facet Needle Gauge: 20 Ultrasound used to visualize needle placement: Yes Ultrasound used to observe medication spread: Yes Injectate: 0.5% Ropivacaine (see comment for volume) Blood Aspirated: No Pain Paresthesia on Injection Noted: No Resistance on Injection: Normal Image Stored and Saved: Yes Events: Uneventful and Well Tolerated (20cc 0.5% Ropivacaine)
[2021-04-20 14:06] VITALS: BP 100/68; PULSE 70; RESP 14
== END 2021-04-20 14:39 | disposition home or self-care (01) ==
LOC: OR 08:17
PROVIDERS: ATTEND Surgery
DX: I12.0 Hypertensive chronic kidney disease with stage 5 chronic kidney disease or end stage renal disease (principal); N18.6 End stage renal disease; Q61.3 Polycystic kidney, unspecified; E66.9 Obesity, unspecified
CPT/HCPCS: 81025; 64415; 76942; 80048; 36821; J2250; J1644 ×2; J1100; J0690 ×2; J2405; J3010; J2795; J2704

== ENCOUNTER 2021-05-09 03:09 | Emergency (ER) | payer OTHER ==
[2021-05-09 03:19] VITALS: TEMP 97.7
[2021-05-09] MEDS ORDERED: ONDANSETRON 4 MG/2 ML VIAL IVP STA (03:49)
[2021-05-09 04:20] LABS: Basophils % (A) 0 %; Eosinophils # (A) 0.1 k/uL (0-0.7); Eosinophils % (A) 1 %; HCT 34.9 % (34.0-46.0); HGB 12.3 gm/dL (11.4-16.0); Lymphocytes # (A) 1.3 k/uL (1.0-4.8); Lymphocytes % (A) 11 %; MCH 30.3 pg (25.0-35.0); MCHC 35.1 g/dL (31.0-37.0); MCV 86.5 fL (80.0-100.0); Mean Platelet Volume 7.4; Monocytes # (A) 0.3 k/uL (0-1.0); Monocytes % (A) 2 %; Neutrophils % (A) 85 %; Platelet Count 219 k/uL (150-450); RBC 4.04 m/uL (3.80-5.40); RDW 13.2 % (11.5-15.5); WBC 11.9 k/uL (3.8-10.6)
[2021-05-09 04:23] VITALS: RESP 16
[2021-05-09 04:35] LABS: Appearance,Urine Cloudy (Clear); Bacteria,Urine Rare /hpf; Bilirubin,Urine Negative (Negative); Blood,Urine Moderate (Negative); Color,Urine Light Yellow; Glucose,Urine (UA) Trace (Negative); Ketones,Urine Negative (Negative); Leukocyte Esterase,Urine Small (Negative); Mucus,Urine Rare /hpf; Nitrite,Urine Negative (Negative); Protein,Urine 2+ (Negative); RBC,Urine 2 /hpf (0-5); Specific Gravity,Urine 1.008 (1.001-1.035); Squamous Epithelial Cell,Urine 16 /hpf (0-4); Urobilinogen,Urine <2.0 mg/dL (<2.0); WBC,Urine 11 /hpf (0-5)
--- NOTE | 2021-05-09 04:41 | XR ---
EXAMINATION TYPE: XR KUB DATE OF EXAM: 05/09/2021 COMPARISON: NONE HISTORY: Vomiting TECHNIQUE: 2 views upright FINDINGS: There is no sign of intestinal obstruction or pneumoperitoneum. Fecal pattern is normal. Th ere is IUD noted. There are no pathologic calcifications over the kidneys. Lung bases are clear. IMPRESSION: Nonacute abdomen.
[2021-05-09 04:52] LABS: Albumin 4.3 g/dL (3.5-5.0); Calcium 8.8 mg/dL (8.4-10.2); Potassium 3.9 mmol/L (3.5-5.1); Total Bilirubin 0.2 mg/dL (0.2-1.3); Total Protein 7.2 g/dL (6.3-8.2)
[2021-05-09 05:28] VITALS: PULSE 84
[2021-05-09] MEDS ORDERED: DICYCLOMINE 20 MG TAB PO STA (06:23)
--- NOTE | 2021-05-09 07:29 | ED ---
Nausea/Vomiting/Diarrhea HPI - General Chief complaint: Nausea/Vomiting/Diarrhea Stated complaint: Vomiting Time Seen by Provider: 05/09/21 03:49 Source: patient Mode of arrival: ambulatory Limitations: no limitations - History of Present Illness Initial comments: This patient is a 25-year-old woman who presents with complaint of abdominal cramping, vomiting, and constipation. Patient states that she has been having a little bit of mild cramping as she has not had a bowel movement in probably 5-6 days (though nursing notes state four, patient believes it has been a couple of days more). She indicates cramping, intermittent, and then she did have an episode of vomiting this evening. MD complaint: vomiting, abdominal pain -: days(s) Location: diffuse Radiation: none Severity: moderate Quality: cramping Consistency: constant Improves with: none Worsens with: none - Related Data Home Medications Medication Instructions Recorded Confirmed No Known Home Medications 02/24/21 04/16/21 Allergies Allergy/AdvReac Type Severity Reaction Status Date / Time No Known Allergies Allergy Verified 05/09/21 03:19 Review of Systems ROS Statement: Those systems with pertinent positive or pertinent negative responses have been documented in the HPI. ROS Other: All systems not noted in ROS Statement are negative. Constitutional: Denies: fever, chills Respiratory: Denies: cough, dyspnea Cardiovascular: Denies: chest pain, palpitations Gastrointestinal: Reports: abdominal pain, nausea, vomiting, constipation. Denies: diarrhea, hematemesis, melena, hematochezia Genitourinary: Denies: dysuria, hematuria Musculoskeletal: Denies: back pain Skin: Denies: rash Neurological: Denies: headache, weakness, numbness Past Medical History Past Medical History: Renal Disease, Syncope Additional Past Medical History / Comment(s): PATIENT IS FEELING VERY ILL AND FATIGUED. HAS kidney failure/autosomal recessive polycystic kidney disease (PATIENT SUSPECTS THAT HER KIDNEYS HAVE BEEN FAILING OVER THE PAST COUPLE OF YEARS). HAS NOT BEEN ABLE TO START DIALYSIS. BROTHER HAD KIDNEY DISEASE ( FROM A SUDDNE INFECTION). Passed out few times when 2014. UTI History of Any Multi-Drug Resistant Organisms: None Reported Past Surgical History: Adenoidectomy, Tonsillectomy Additional Past Surgical History / Comment(s): 03/02/21 AV FISTULA CREATION (BUT FAILED). nasal reconstruction(fx nose) Past Anesthesia/Blood Transfusion Reactions: Postoperative Nausea & Vomiting (PONV) Past Psychological History: No Psychological Hx Reported Smoking Status: Former smoker Past Alcohol Use History: None Reported Past Drug Use History: None Reported - Past Family History Father Family Medical History: No Reported History Brother(s) Family Medical History: Renal Disease Additional Family Medical History / Comment(s): from kidney disease Mother Family Medical History: Cancer Additional Family Medical History / Comment(s): MELANOMA () General Exam Limitations: no limitations General appearance: alert, in no apparent distress Head exam: Present: atraumatic, normocephalic Eye exam: Present: normal appearance. Absent: scleral icterus, conjunctival injection Neck exam: Present: normal inspection Respiratory exam: Present: normal lung sounds bilaterally. Absent: respiratory distress, wheezes, rales, rhonchi, stridor Cardiovascular Exam: Present: regular rate, normal rhythm, normal heart sounds. Absent: systolic murmur, diastolic murmur, rubs, gallop GI/Abdominal exam: Present: soft. Absent: distended, tenderness, guarding, rebound, rigid, mass, pulsatile mass, hernia Extremities exam: Present: normal inspection, normal capillary refill. Absent: pedal edema, calf tenderness Back exam: Present: normal inspection. Absent: CVA tenderness (R), CVA tenderne ss (L) Neurological exam: Present: alert Skin exam: Present: warm, dry, intact, normal color. Absent: rash Course Vital Signs 05/09/21 05/09/21 05/09/21 03:14 04:21 05:26 Temperature 97.7 F Pulse Rate 88 86 84 Respiratory 18 16 16 Rate Blood Pressure 149/94 142/91 143/84 O2 Sat by Pulse 97 96 96 Oximetry 05/09/21 07:58 Temperature 97.7 F Pulse Rate 84 Respiratory 16 Rate Blood Pressure 134/88 O2 Sat by Pulse 96 Oximetry Medical Decision Making - Medical Decision Making Patient feeling better with anti-medic. No further nausea or vomiting. She did receive dose of antibiotic for possible urinary tract infection though she denies having symptoms related to this. Patient did have an enema for the constipation which only helped her to pass a small amount of stool. She did want to try something by mouth at home, and therefore given GoLYTELY to attempt. Patient to have close follow-up, returning if there is recurrence of pain or if any new symptoms develop. - Lab Data Result diagrams: 05/09/21 04:02 05/09/21 04:02 Lab Results 05/09/21 05/09/21 05/09/21 Range/Units 04:02 04:02 04:02 WBC 11.9 H (3.8-10.6) k/uL RBC 4.04 (3.80-5.40) m/uL Hgb 12.3 (11.4-16.0) gm/dL Hct 34.9 (34.0-46.0) % MCV 86.5 (80.0-100.0) fL MCH 30.3 (25.0-35.0) pg MCHC 35.1 (31.0-37.0) g/dL RDW 13.2 (11.5-15.5) % Plt Count 219 (150-450) k/uL MPV 7.4 Neutrophils % 85 % Lymphocytes % 11 % Monocytes % 2 % Eosinophils % 1 % Basophils % 0 % Neutrophils # 10.0 H (1.3-7.7) k/uL Lymphocytes # 1.3 (1.0-4.8) k/uL Monocytes # 0.3 (0-1.0) k/uL Eosinophils # 0.1 (0-0.7) k/uL Basophils # 0.0 (0-0.2) k/uL Sodium 139 (137-145) mmol/L Potassium 3.9 (3.5-5.1) mmol/L Chloride 111 H (98-107) mmol/L Carbon Dioxide 15 L (22-30) mmol/L Anion Gap 13 mmol/L BUN 60 H (7-17) mg/dL Creatinine 5.23 H (0.52-1.04) mg/dL Est GFR (CKD-EPI)AfAm 12 (>60 ml/min/1.73 sqM) Est GFR (CKD-EPI)NonAf 11 (>60 ml/min/1.73 sqM) Glucose 135 H (74-99) mg/dL Calcium 8.8 (8.4-10.2) mg/dL Total Bilirubin 0.2 (0.2-1.3) mg/dL AST 18 (14-36) U/L ALT 13 (4-34) U/L Alkaline Phosphatase 102 (38-126) U/L Total Protein 7.2 (6.3-8.2) g/dL Albumin 4.3 (3.5-5.0) g/dL Amylase 88 (30-110) U/L Lipase 275 (23-300) U/L Urine Color Light Yellow Urine Appearance Cloudy H (Clear) Urine pH 6.0 (5.0-8.0) Ur Specific [place] 1.008 (1.001-1.035) Urine Protein 2+ H (Negative) Urine Glucose (UA) Trace H (Negative) Urine Ketones Negative (Negative) Urine Blood Moderate H (Negative) Urine Nitrite Negative (Negative) Urine Bilirubin Negative (Negative) Urine Urobilinogen <2.0 (<2.0) mg/dL Ur Leukocyte Esterase Small H (Negative) Urine RBC 2 (0-5) /hpf Urine WBC 11 H (0-5) /hpf Ur Squamous Epith Cells 16 H (0-4) /hpf Urine Bacteria Rare H (None) /hpf Urine Mucus Rare H (None) /hpf Urine HCG, Qual (Not Detectd) 05/09/21 Range/Units 04:02 WBC (3.8-10.6) k/uL RBC (3.80-5.40) m/uL Hgb (11.4-16.0) gm/dL Hct (34.0-46.0) % MCV (80.0-100.0) fL MCH (25.0-35.0) pg MCHC (31.0-37.0) g/dL RDW (11.5-15.5) % Plt Count (150-450) k/uL MPV Neutrophils % % Lymphocytes % % Monocytes % % Eosinophils % % Basophils % % Neutrophils # (1.3-7.7) k/uL Lymphocytes # (1.0-4.8) k/uL Monocytes # (0-1.0) k/uL Eosinophils # (0-0.7) k/uL Basophils # (0-0.2) k/uL Sodium (137-145) mmol/L Potassium (3.5-5.1) mmol/L Chloride (98-107) mmol/L Carbon Dioxide (22-30) mmol/L Anion Gap mmol/L BUN (7-17) mg/dL Creatinine (0.52-1.04) mg/dL Est GFR (CKD-EPI)AfAm (>60 ml/min/1.73 sqM) Est GFR (CKD-EPI)NonAf (>60 ml/min/1.73 sqM) Glucose (74-99) mg/dL Calcium (8.4-10.2) mg/dL Total Bilirubin (0.2-1.3) mg/dL AST (14-36) U/L ALT (4-34) U/L Alkaline Phosphatase (38-126) U/L Total Protein (6.3-8.2) g/dL Albumin (3.5-5.0) g/dL Amylase (30-110) U/L Lipase (23-300) U/L Urine Color Urine Appearance (Clear) Urine pH (5.0-8.0) Ur Specific [place] (1.001-1.035) Urine Protein (Negative) Urine Glucose (UA) (Negative) Urine Ketones (Negative) Urine Blood (Negative) Urine Nitrite (Negative) Urine Bilirubin (Negative) Urine Urobilinogen (<2.0) mg/dL Ur Leukocyte Esterase (Negative) Urine RBC (0-5) /hpf Urine WBC (0-5) /hpf Ur Squamous Epith Cells (0-4) /hpf Urine Bacteria (None) /hpf Urine Mucus (None) /hpf Urine HCG, Qual Not Detected (Not Detectd) Disposition Clinical Impression: Constipation Disposition: HOME SELF-CARE Condition: Good Instructions (If sedation given, give patient instructions): Constipation (ED) Is patient prescribed a controlled substance at d/c from ED?: No Referrals: Freddy Rodriguez MD [Primary Care Provider] - 1-2 days
[2021-05-09 07:59] VITALS: BP 134/88
[2021-05-09] MEDS ORDERED: PEG 3350-NA SULF,BICARB,CL/KCL 4,000 ML BOTTLE PO ONE (08:00)
== END 2021-05-09 07:59 | disposition home or self-care (01) ==
LOC: EC 03:09
DX: K59.00 Constipation, unspecified (principal); Z87.891 Personal history of nicotine dependence
CPT/HCPCS: 96374 ×2; 96375 ×2; 99284 ×2; 36415; 80053; 82150; 83690; 85025; 81001; 81025; 74018; J2405; J0696

== ENCOUNTER 2021-06-28 20:35 | Emergency (ER) | payer OTHER ==
[2021-06-28 21:12] VITALS: RESP 18
--- NOTE | 2021-06-28 22:12 | ED ---
Recheck HPI - General Chief Complaint: Extremity Problem,Nontraumatic Stated Complaint: Issue with dialysis fistula Time Seen by Provider: 06/28/21 22:01 Source: patient, RN notes reviewed, old records reviewed Mode of arrival: ambulatory Limitations: no limitations - History of Present Illness Initial Comments: This is a 26-year-old female DF for evaluation patient presents today for evaluation regards to left upper extremity swelling edema and bruising, patient has been using a left upper extremity dialysis fistula after a failed previous fistula for about 2 months now. Last few days the increase in swelling pain and bruising elevated. Patient was concern for the amount of swelling and bruising today. Patient is scheduled for dialysis tomorrow MD Complaint: wound re-check (Dialysis fistula recheck) -: days(s) Returns Today for: persistent/worsening pain related to initial visit Symptoms Since Prior Visit: worsening pain, worsening swelling (Bruising) Associated Symptoms: none Treatments Prior to Arrival: other (none) - Related Data Home Medications Medication Instructions Recorded Confirmed No Known Home Medications 02/24/21 04/16/21 Allergies Allergy/AdvReac Type Severity Reaction Status Date / Time No Known Allergies Allergy Verified 06/28/21 21:12 Review of Systems ROS Statement: Those systems with pertinent positive or pertinent negative responses have been documented in the HPI. ROS Other: All systems not noted in ROS Statement are negative. Past Medical History Past Medical History: Renal Disease, Syncope Additional Past Medical History / Comment(s): PATIENT IS FEELING VERY ILL AND FATIGUED. HAS kidney failure/autosomal recessive polycystic kidney disease (PATIENT SUSPECTS THAT HER KIDNEYS HAVE BEEN FAILING OVER THE PAST COUPLE OF YEARS). HAS NOT BEEN ABLE TO START DIALYSIS. BROTHER HAD KIDNEY DISEASE ( FROM A SUDDNE INFECTION). Passed out few times when 2014. UTI History of Any Multi-Drug Resistant Organisms: None Reported Past Surgical History: Adenoidectomy, Tonsillectomy Additional Past Surgical History / Comment(s): 03/02/21 AV FISTULA CREATION (BUT FAILED). nasal reconstruction(fx nose) Past Anesthesia/Blood Transfusion Reactions: Postoperative Nausea & Vomiting (PONV) Past Psychological History: No Psychological Hx Reported Smoking Status: Former smoker Past Alcohol Use History: None Reported Past Drug Use History: None Reported - Past Family History Father Family Medical History: No Reported History Brother(s) Family Medical History: Renal Disease Additional Family Medical History / Comment(s): from kidney disease Mother Family Medical History: Cancer Additional Family Medical History / Comment(s): MELANOMA () General Exam General appearance: alert, in no apparent distress Head exam: Present: atraumatic, normocephalic, normal inspection Eye exam: Present: normal appearance, PERRL, EOMI. Absent: scleral icterus, conjunctival injection, periorbital swelling ENT exam: Present: normal exam, mucous membranes moist Neck exam: Present: normal inspection. Absent: tenderness, meningismus, lymphadenopathy Respiratory exam: Present: normal lung sounds bilaterally. Absent: respiratory distress, wheezes, rales, rhonchi, stridor Cardiovascular Exam: Present: regular rate, normal rhythm, normal heart sounds. Absent: systolic murmur, diastolic murmur, rubs, gallop, clicks GI/Abdominal exam: Present: soft, normal bowel sounds. Absent: distended, tenderness, guarding, rebound, rigid Extremities exam: Present: normal inspection, full ROM, normal capillary refill. Absent: tenderness, pedal edema, joint swelling, calf tenderness Left General: Present: other Upper Arm exam: Present: full ROM, tenderness (to area of fistula), ecchymosis (medial aspect of arm), other (good thrill to fistula) Vascular: Present: normal capillary refill, radial pulse (normal), ulnar pulse (normal) Back exam: Present: normal inspection Neurological exam: Present: alert, oriented X3, CN II-XII intact Psychiatric exam: Present: normal affect, normal mood Skin exam: Present: warm, dry, intact, normal color. Absent: rash Course Vital Signs 06/28/21 06/28/21 21:05 21:56 Temperature 98.6 F Pulse Rate 96 98 Respiratory 18 18 Rate Blood Pressure 127/81 136/82 O2 Sat by Pulse 100 99 Oximetry - Reevaluation(s) Reevaluation #1: 06/28/21 23:11 Medical records reviewed Reevaluation #2: 06/28/21 23:12 Spoke with patient regarding findings here, questions answered - Consultations Consultation #1: Did speak with Dr. Coffey without any significant complications to worry about Medical Decision Making - Medical Decision Making 26 female DF for evaluation, patient here for evaluation of left upper extremity dialysis fistula, patient is a significant bruising and swelling of the left upper arm but does appear to have good bruit good distal pulses, patient encouraged to ice that area and follow-up with dialysis as scheduled tomorrow Disposition Clinical Impression: Traumatic ecchymosis of left upper arm Narrative: Dialysis Fistula Bleeding Disposition: HOME SELF-CARE Condition: Good Instructions (If sedation given, give patient instructions): Ecchymosis (ED) Is patient prescribed a controlled substance at d/c from ED?: No Referrals: Freddy Rodriguez MD [Primary Care Provider] - 1-2 days
[2021-06-28 23:41] VITALS: BP 116/83; PULSE 72; TEMP 98.7
== END 2021-06-28 23:39 | disposition home or self-care (01) ==
LOC: EC 20:35
DX: Z49.01 Encounter for fitting and adjustment of extracorporeal dialysis catheter (principal); S40.022A Contusion of left upper arm, initial encounter; N18.9 Chronic kidney disease, unspecified; R60.0 Localized edema; Z90.89 Acquired absence of other organs; Z87.891 Personal history of nicotine dependence; X58.XXXA Exposure to other specified factors, initial encounter
CPT/HCPCS: 99284

== ENCOUNTER → 2022-12-15 | Day surgery (SDC) | payer MEDICARE, OTHER ==
[~2022-12-15] MED LIST changes: +ACETAMINOPHEN TAB 500 MG TAB PO PRN; +BUPIVACAIN-EPI 0.25%-1:200,000 30 ML VIAL SQ ONE; -DEXAMETHASONE SOD PHOSPHATE 4 MG/ML 1 ML VIAL IV ONE; +DEXAMETHASONE SOD PHOSPHATE 4 MG/ML 1 ML VIAL IVP ONE; +HEPARIN SODIUM,PORCINE/PF 5,000 UNIT/0.5 ML SYRINGE SQ PRN; +HYDROcodone/APAP 5-325MG 1 EACH TAB PO PRN; +HYDROmorphone (PF) 1 MG/ML ONE; -HYDROmorphone 0.5 MG/0.5 ML SYRINGE IVP PRN; -LACTATED RINGERS 1,000 ML IV SCH; -LIDOCAINE 1% (10MG/ML) FOR IV START INTRADERMA PRN; +LIDOCAINE 2% INJ 20 MG/ML (2 ML VIAL) ONE; -MIDAZOLAM 2 MG/2 ML VIAL IV PRN; +MIDAZOLAM 2 MG/2 ML VIAL ONE; +MINERAL OIL 1 APPLIC/ML OIL TOPICAL ONE; +NALOXONE 0.4 MG/ML 1 ML VIAL IV PRN; +ONDANSETRON 4 MG/2 ML VIAL ONE; +PROPOFOL 10 MG/ML 20 ML VIAL IV ONE; +SCOPOLAMINE 1 MG/72 HR PATCH TRANSDERM ONE; +SODIUM CHLORIDE 0.9% 1,000 ML IV ONE; +SUCCINYLCHOLINE CHLORIDE 200 MG/10 ML VIAL IV ONE; +fentaNYL (PF) 50 MCG/ML 2 ML AMP ONE
[2022-12-15 13:00] LABS: Basophils % (A) 0 %; Eosinophils # (A) 0.3 k/uL (0-0.7); Eosinophils % (A) 3 %; HCT 30.4 % (34.0-46.0); HGB 10.4 gm/dL (11.4-16.0); Lymphocytes # (A) 1.9 k/uL (1.0-4.8); Lymphocytes % (A) 20 %; MCH 30.9 pg (25.0-35.0); MCHC 34.3 g/dL (31.0-37.0); Mean Platelet Volume 7.3; Monocytes # (A) 0.4 k/uL (0-1.0); Monocytes % (A) 4 %; Neutrophils % (A) 72 %; Platelet Count 178 k/uL (150-450); RBC 3.38 m/uL (3.80-5.40); RDW 13.9 % (11.5-15.5); WBC 9.7 k/uL (3.8-10.6)
[2022-12-15 13:11] LABS: Albumin 4.3 g/dL (3.5-5.0); Calcium 9.3 mg/dL (8.4-10.2); Potassium 3.8 mmol/L (3.5-5.1); Total Bilirubin 0.4 mg/dL (0.2-1.3); Total Protein 7.3 g/dL (6.3-8.2)
--- NOTE | 2022-12-15 13:47 | P.OP ---
Date of Procedure: 12/15/22 Procedure(s) Performed: PREOPERATIVE DIAGNOSIS: Renal failure POSTOPERATIVE DIAGNOSIS: Same PROCEDURE: Peritoneal dialysis catheter insertion SURGEON: Thomas EBL: Minimal ANESTHESIA: General COMPLICATIONS: None OPERATIVE PROCEDURE: The patient was placed in the operative table in the supine position. The abdomen was prepped and draped in usual sterile fashion. A small vertical incision was made in the left periumbilical location. Dissection down through the subcutaneous tissues took place using electrocautery. The anterior rectus was divided vertically using the scalpel. The rectus was bluntly. The posterior rectus was visualized. An 0 Vicryl pursestring was placed. A small opening in the posterior rectus fascia and peritoneum took place using a Metzenbaum scissors. There were no adhesions to the suture that was placed. The pigtail catheter was advanced into the pelvis over a stylette. No resistance was met. The inner cuff was secured to the fascia using the 0 Vicryl pursestring that was placed. The catheter was tunneled to an exit site in the right lateral lower quadrant. The catheter was connected to the 1 L bag of saline and approximated 800 mL of saline was easily introduced into the peritoneal cavity. The fluid was then allowed to evacuate. The majority of the fluid was returned. The anterior rectus fascia was then reapproximated using a running 0 Vicryl stitch. The subcutaneous tissues reprepped using 3-0 Vicryl sutures and the skin using 4-0 Monocryl sutures. The outpatient dialysis adapter was applied to the end of the catheter. Sterile dressings were then applied after skin glue was placed over the incision. DISPOSITION: Stable to recovery room
[2022-12-15 13:56] VITALS: TEMP 96.8
[2022-12-15 14:39] VITALS: RESP 16
[2022-12-15 16:02] VITALS: BP 119/73; PULSE 89
== END ==
LOC: OR 11:45
PROVIDERS: ATTEND Surgery
DX: N18.9 Chronic kidney disease, unspecified (principal); Z99.2 Dependence on renal dialysis; Z87.891 Personal history of nicotine dependence; G35 Multiple sclerosis; Z98.890 Other specified postprocedural states; Z84.2 Family history of other diseases of the genitourinary system; Z80.8 Family history of malignant neoplasm of other organs or systems; Z79.83 Long term (current) use of bisphosphonates
CPT/HCPCS: 49421; 81025; 80053; 85025; C1752; J2250; J0330; J1100; J0690; J2405; J3010; J1170; J2704; J1644; J2001

== ENCOUNTER 2024-05-13 07:38 | Day surgery (SDC) | payer MEDICARE, OTHER ==
[2024-05-13 07:58] VITALS: TEMP 97.7
[2024-05-13] MEDS ORDERED: droPERidol 5 MG/2 ML VIAL IVP PRN (07:58)
[2024-05-13] MEDS ORDERED: LIDOCAINE 1% (10MG/ML) FOR IV START INTRADERMA PRN (07:58)
[2024-05-13] MEDS ORDERED: LACTATED RINGERS 1,000 ML IV SCH (07:58)
[2024-05-13] MEDS ORDERED: HYDROmorphone 0.5 MG/0.5 ML SYRINGE IVP PRN (07:58)
[2024-05-13] MEDS: IV FLUID CONTINUATION 1,000 ML IV ONE (08:05)
[2024-05-13] MEDS: DEXAMETHASONE SOD PHOSPHATE 4 MG/ML 1 ML VIAL IV ONE (08:11)
[2024-05-13] MEDS: HEPARIN SODIUM,PORCINE 5,000 UNIT/ML 1 ML VIAL SQ PRN (08:11)
[2024-05-13] MEDS: SODIUM CHLORIDE 0.9% 1,000 ML BAG IV STA (08:11)
[2024-05-13] MEDS: ONDANSETRON 4 MG/2 ML VIAL IVP ONE (08:12)
[2024-05-13] MEDS: ACETAMINOPHEN TAB 500 MG TAB PO PRN (08:12)
[2024-05-13] MEDS: FAMOTIDINE 20 MG/2 ML VIAL IV ONE (08:13)
--- NOTE | 2024-05-13 08:51 | P.GSHP ---
History of Present Illness H&P Date: 05/13/24 Chief Complaint: Renal failure 28-year-old female here today for peritoneal dialysis catheter removal. Had gradual decline in the function of the dialysis. Patient was becoming more ill and was switched back to hemodialysis. She has not used the catheter in several weeks. Past Medical History Past Medical History: Dialysis, GERD/Reflux, Renal Disease, Syncope Additional Past Medical History / Comment(s): PATIENT IS FEELING VERY ILL AND FATIGUED. HAS kidney failure/autosomal recessive polycystic kidney disease (PATIENT SUSPECTS THAT HER KIDNEYS HAVE BEEN FAILING OVER THE PAST COUPLE OF YEARS). Seen [facility] 5 yrs ago BROTHER HAD KIDNEY DISEASE ( FROM A SUDDen INFECTION). Pas frequent heartburn. dialyisi M_W_F sycopal episode when , elevated heart rate, has neurapathy to aubree lower extremities, some days are good other days is unable to ambulate History of Any Multi-Drug Resistant Organisms: None Reported Past Surgical History: Adenoidectomy, Tonsillectomy Additional Past Surgical History / Comment(s): 03/02/21 AV FISTULA CREATION (BUT FAILED) redone to left antecubital. nasal reconstruction(fx nose peritoneal dialysis cath plament Past Anesthesia/Blood Transfusion Reactions: Postoperative Nausea & Vomiting (PONV) Additional Past Anesthesia/Blood Transfusion Reaction / Comment(s): with fistuala Smoking Status: Former smoker - Past Family History Father Family Medical History: No Reported History Brother(s) Family Medical History: Renal Disease Additional Family Medical History / Comment(s): from kidney disease Mother Family Medical History: Cancer Additional Family Medical History / Comment(s): MELANOMA () Medications and Allergies Home Medications Medication Instructions Recorded Confirmed Type Gabapentin [Neurontin] 300 mg PO Q48H 05/08/24 05/13/24 History Metoprolol Succinate (ER) [Toprol 50 mg PO DAILY 05/08/24 05/13/24 History Xl] Sodium Bicarb (Unk) 1 tab PO DAILY 05/08/24 05/13/24 History Allergies Allergy/AdvReac Type Severity Reaction Status Date / Time epoetin beta [From Mircera] Allergy Anaphylaxis Verified 05/13/24 08:01 Surgical - Exam Vital Signs Temp Pulse Resp BP Pulse Ox 97.7 F 119 H 16 129/71 97 05/13/24 07:56 05/13/24 07:56 05/13/24 07:56 05/13/24 07:56 05/13/24 07:56 Physical exam: General: Well-developed, well-nourished HEENT: Normocephalic, sclerae nonicteric Abdomen: Nontender, nondistended, catheter in place Extremities: No edema Neuro: Alert and oriented Results - Labs 05/13/24 08:10 Diabetes panel 05/13/24 Range/Units 08:10 Potassium 4.3 (3.5-5.1) mmol/L Pituitary panel 05/13/24 Range/Units 08:10 Potassium 4.3 (3.5-5.1) mmol/L Adrenal panel 05/13/24 Range/Units 08:10 Potassium 4.3 (3.5-5.1) mmol/L Assessment and Plan (1) End-stage renal disease (ESRD) Narrative/Plan: Will proceed with peritoneal dialysis catheter removal at this time. Current Visit: Yes Status: Acute Code(s): N18.6 - END STAGE RENAL DISEASE SNOMED Code(s): 21726524
[2024-05-13] MEDS ORDERED: MIDAZOLAM 2 MG/2 ML VIAL ONE (08:57)
[2024-05-13] MEDS ORDERED: fentaNYL (PF) 50 MCG/ML 2 ML AMP ONE (08:57)
[2024-05-13] MEDS ORDERED: PROPOFOL 10 MG/ML 20 ML VIAL IV ONE (08:57)
[2024-05-13] MEDS: BUPIVACAINE (PF) 0.25% 30 ML VIAL SQ ONE ×2 (09:16)
[2024-05-13] MEDS ORDERED: NALOXONE 0.4 MG/ML 1 ML VIAL IV PRN (09:32)
[2024-05-13] MEDS ORDERED: ACETAMINOPHEN TAB 325 MG TAB PO PRN (09:32)
--- NOTE | 2024-05-13 09:33 | P.OP ---
Date of Procedure: 05/13/24 Procedure(s) Performed: PREOPERATIVE DIAGNOSIS: Renal failure POSTOPERATIVE DIAGNOSIS: Same PROCEDURE: PD cath removal SURGEON: Thomas EBL: 2 mL ANESTHESIA: Sedation and local COMPLICATIONS: None OPERATIVE PROCEDURE: Patient was placed in the supine position. The abdomen was prepped and draped in usual sterile fashion. The previous paramedian incision was re-incised after localizing the skin. The subcutaneous tissues were divided using electrocautery. Blunt dissection around the cuff that was present at the fascia and peritoneum took place. The cuff was fully mobilized. The catheter was removed from the perineal cavity. The outer cuff was dissected from the saphenous fascia using electrocautery. The catheter was cut on the other side of that cuff and the catheter was removed. The fascial defect was closed using a single [id number] 0 Vicryl stitch. The subcutaneous tissues were closed using 3-0 Vicryl sutures and the skin using 4-0 Monocryl sutures. Skin glue and sterile dressings were applied. DISPOSITION: Stable to recovery room
[2024-05-13 10:14] VITALS: BP 106/67; PULSE 109; RESP 20
== END 2024-05-13 10:27 | disposition home or self-care (01) ==
LOC: OR 07:38
PROVIDERS: ATTEND Surgery
DX: N18.6 End stage renal disease (principal); K21.9 Gastro-esophageal reflux disease without esophagitis; Q61.19 Other polycystic kidney, infantile type; Z87.891 Personal history of nicotine dependence; Z99.2 Dependence on renal dialysis; Z90.89 Acquired absence of other organs; Z88.8 Allergy status to other drugs, medicaments and biological substances; Z79.899 Other long term (current) drug therapy
CPT/HCPCS: 81025; 84132; 49422; J2250; J1644; J1100; J0690; J2405; J3010; J3490; J2704; J0665

== ENCOUNTER 2025-03-22 00:21 | Inpatient (IN) | payer MEDICARE, OTHER ==
[2025-03-22] MEDS: HYDROmorphone 1 MG/ML 1 ML SYRINGE IVP STA (01:45)
[2025-03-22] MEDS: SODIUM CHLORIDE 0.9% 1,000 ML IV STA (01:55)
[2025-03-22] MEDS: ACETAMINOPHEN TAB 500 MG TAB PO STA (01:55)
--- NOTE | 2025-03-22 02:04 | ED ---
Female Urogenital HPI - General Source: patient, family, RN notes reviewed Mode of arrival: ambulatory - History of Present Illness Onset/Timin -: hour(s) Time: 15:00 Severity scale (1-10): 6 Quality: cramping, sharp Consistency: constant <Pedro Luis Pastrana - Last Filed: 03/22/25 04:51> <Oscar Wilkes - Last Filed: 03/24/25 08:43> - General Chief complaint: Urogenital Stated complaint: abd pain NV Time Seen by Provider: 03/22/25 00:40 - History of Present Illness Initial comments: This is a 29-year-old female with history including polycystic kidney disease and ESRD presenting via EMS from [facility] for right flank/abdominal pain (04/29) since 1500 this afternoon. Patient states she underwent a workup at [facility] where it was discovered she had a possible hemorrhagic cyst on her right kidney causing her significant pain with assoc iated nausea. Patient was then transferred to [facility] ER for further evaluation by urology. Patient denies fever, chills, chest pain, dyspnea, hematemesis, urinary symptoms. (Pedro Luis Pastrana) - Related Data Home Medications Medication Instructions Recorded Confirmed Calcium Acetate [Phoslo] 1,334 mg PO TID-W/MEALS 03/22/25 03/22/25 calcitrioL [Rocaltrol (GEQ)] 1 mcg PO BID 03/22/25 03/22/25 Allergies Allergy/AdvReac Type Severity Reaction Status Date / Time epoetin beta [From Mircera] Allergy Anaphylaxis Verified 03/22/25 11:26 Review of Systems ROS Other: All systems not noted in ROS Statement are negative. <Pedro Luis Pastrana - Last Filed: 03/22/25 04:51> ROS Other: All systems not noted in ROS Statement are negative. <Oscar Wilkes - Last Filed: 03/24/25 08:43> ROS Statement: Those systems with pertinent positive or pertinent negative responses have been documented in the HPI. Past Medical History Past Medical History: Dialysis, GERD/Reflux, Renal Disease, Syncope Additional Past Medical History / Comment(s): PATIENT IS FEELING VERY ILL AND FATIGUED. HAS kidney failure/autosomal recessive polycystic kidney disease (PATIENT SUSPECTS THAT HER KIDNEYS HAVE BEEN FAILING OVER THE PAST COUPLE OF YEARS). Seen [facility] 5 yrs ago BROTHER HAD KIDNEY DISEASE ( FROM A SUDDen INFECTION). Pas frequent heartburn. dialyisi M_W_F sycopal episode when , elevated heart rate, has neurapathy to aubree lower extremities, some days are good other days is unable to ambulate History of Any Multi-Drug Resistant Organisms: None Reported Past Surgical History: Adenoidectomy, Tonsillectomy Additional Past Surgical History / Comment(s): 03/02/21 AV FISTULA CREATION (BUT FAILED) redone to left antecubital. nasal reconstruction(fx nose peritoneal dialysis cath plament Past Anesthesia/Blood Transfusion Reactions: Postoperative Nausea & Vomiting (PONV) Additional Past Anesthesia/Blood Transfusion Reaction / Comment(s): with fistuala Past Psychological History: No Psychological Hx Reported Smoking Status: Former smoker Past Alcohol Use History: None Reported Past Drug Use History: None Reported - Past Family History Father Family Medical History: No Reported History Brother(s) Family Medical History: Renal Disease Additional Family Medical History / Comment(s): from kidney disease Mother Family Medical History: Cancer Additional Family Medical History / Comment(s): MELANOMA () <Pedro Luis Pastrana - Last Filed: 03/22/25 04:51> General Exam General appearance: alert, in no apparent distress Head exam: Present: atraumatic, normocephalic, normal inspection Eye exam: Present: normal appearance, PERRL, EOMI. Absent: scleral icterus, conjunctival injection, periorbital swelling ENT exam: Present: normal exam, mucous membranes moist Neck exam: Present: normal inspection. Absent: tenderness, meningismus, lymphadenopathy Respiratory exam: Present: normal lung sounds bilaterally. Absent: respiratory distress, wheezes, rales, rhonchi, stridor Cardiovascular Exam: Present: regular rate, normal rhythm, normal heart sounds. Absent: systolic murmur, diastolic murmur, rubs, gallop, clicks GI/Abdominal exam: Present: soft, tenderness (Exquisite RLQ and right flank TTP), guarding, normal bowel sounds. Absent: distended, rebound, rigid Extremities exam: Present: normal inspection, full ROM, normal capillary refill. Absent: tenderness, pedal edema, joint swelling, calf tenderness Back exam: Present: CVA tenderness (R). Absent: CVA tenderness (L) Neurological exam: Present: alert, oriented X3, CN II-XII intact Psychiatric exam: Present: normal affect, normal mood Skin exam: Present: warm, dry, intact, normal color. Absent: rash <Pedro Luis Pastrana - Last Filed: 03/22/25 04:51> Course Vital Signs 03/22/25 03/22/25 03/22/25 00:26 02:12 05:42 Temperature 97.9 F Pulse Rate 94 79 99 Pulse Rate [ Right Brachial] Respiratory 18 19 18 Rate Blood Pressure 157/84 141/75 141/88 Blood Pressure [Right Arm] O2 Sat by Pulse 99 97 99 Oximetry 03/22/25 03/22/25 03/22/25 07:26 11:32 14:45 Temperature 98.0 F Pulse Rate 81 94 Pulse Rate [ Right Brachial] Respiratory 16 18 Rate Blood Pressure 151/93 151/94 153/80 Blood Pressure [Right Arm] O2 Sat by Pulse 100 Oximetry 03/22/25 03/22/25 03/22/25 16:12 16:43 19:00 Temperature 97.9 F 99.0 F Pulse Rate 102 H 90 Pulse Rate [ 103 H Right Brachial] Respiratory 18 19 19 Rate Blood Pressure 145/85 109/65 Blood Pressure 142/68 [Right Arm] O2 Sat by Pulse 96 94 L Oximetry Medical Decision Making - Lab Data Result diagrams: 03/22/25 03:23 03/22/25 02:08 <Pedro Luis Pastrana - Last Filed: 03/22/25 04:51> - Lab Data Result diagrams: 03/24/25 06:34 03/24/25 06:34 <Oscar Wilkes - Last Filed: 03/24/25 08:43> - Medical Decision Making Was pt. sent in by a medical professional or institution (, PA, TREE SURGEON HELPER, urgent care, hospital, or intermediate...) When possible be specific @ -[facility] Did you speak to anyone other than the patient for history (EMS, parent, family, police, friend...)? What history was obtained from this source @ -No Did you review nursing and triage notes (agree or disagree)? Why? @ -I reviewed and agree with nursing and triage notes Were old charts reviewed (outside hosp., previous admission, EMS record, old EKG, old radiological studies, urgent care reports/EKG's, intermediate records)? Report findings @ -Paperwork from [facility] reviewed indicating discovery of bilateral polycystic kidney disease and dense region in right kidney indicating possible hemorrhagic cyst as cause for patient's right abdominal/flank pain that began earlier today. Differential Diagnosis (chest pain, altered mental status, abdominal pain women, abdominal pain men, vaginal bleeding, weakness, fever, dyspnea, syncope, headache, dizziness, GI bleed, back pain, seizure, CVA, palpatations, mental health, musculoskeletal)? @ -Differential Abdominal Pain Women: Appendicitis, Cholecystitis, diverticulosis, ischemic bowel, pancreatitis, hepatitis, UTI, gastroenteritis, AAA, incarcerated hernia, bowel obstruction, constipation, inflammatory bowel, hepatitis, peptic ulcer disease, splenic in farction, perforated viscus, vulvitis, ovarian torsion, PID, kidney stone, placenta abruption, this is not meant to be an all-inclusive list EKG interpreted by me (3pts min.). @ -Done X-rays interpreted by me (1pt min.). @ -None done CT interpreted by me (1pt min.). @ -None done U/S interpreted by me (1pt. min.). @ -None done What testing was considered but not performed or refused? (CT, X-rays, U/S, labs)? Why? @ -None What meds were considered but not given or refused? Why? @ -None Did you discuss the management of the patient with other professionals (professionals i.e. , PA, TREE SURGEON HELPER, lab, RT, psych nurse, web content & social media manager, acid wash operator, teacher, credit administration officer, manager of case management)? Give summary @ -Spoke to Gwendolyn Boles from [facility] for patient admission due to severe pain likely from right hemorrhagic cyst. Was smoking cessation discussed for >3mins.? @ -No Was critical care preformed (if so, how long)? @ -No Were there social determinants of health that impacted care today? How? (H omelessness, low income, unemployed, alcoholism, drug addiction, transportation, low edu. Level, literacy, decrease access to med. care, custodial, rehab)? @ -No Was there de-escalation of care discussed even if they declined (Discuss DNR or withdrawal of care, Hospice)? DNR status @ -No What co-morbidities impacted this encounter? (DM, HTN, Smoking, COPD, CAD, Cancer, CVA, ARF, Chemo, Hep., AIDS, mental health diagnosis, sleep apnea, morbid obesity)? @ -None Was patient admitted / discharged? Hospital course, mention meds given and route, prescriptions, significant lab abnormalities, going to OR and other pertinent info. @ -Lab work positive for leukocytosis 11.75 with left shift, anemia 8.5 and thrombocytopenia 131. Hyperkalemia 6.1, ESRD noted with BUN 70, creatinine 10.76 and GFR 4. Patient states she was supposed to have dialysis performed today but did not go. UA is contaminated with negative urine hCG. Patient initially provided IV line, normal saline and p.o. Tylenol for pain. Provided p.o. Lokelma for hyperkalemia and IV Zofran for nausea. Patient states pain is well-managed at this point. Spoke to Gwendolyn Boles from [facility] for patient admission due to severe pain likely from right hemorrhagic cyst. Discussed patient with Dr. Wilkes. Undiagnosed new problem with uncertain prognosis? @ -No Drug Therapy requiring intensive monitoring for toxicity (Heparin, Nitro, Insulin, Cardizem)? @ -No Were any procedures done? @ -No Diagnosis/symptom? @ -Hemorrhagic renal cyst with intractable pain Acute, or Chronic, or Acute on Chronic? @ -Acute Uncomplicated (without systemic symptoms) or Complicated (systemic symptoms)? @ -Complicated Side effects of treatment? @ -No Exacerbation, Progression, or Severe Exacerbation? @ -Progression Poses a threat to life or bodily function? How? (Chest pain, [place], [place], pneumonia, PE, COPD, DKA, ARF, appy, cholecystitis, CVA, Diverticulitis, Homicidal, Suicidal, threat to staff... and all critical care pts) @ -No (Pedro Luis Pastrana) - Lab Data Lab Results 03/22/25 03/22/25 03/22/25 Range/Units 02:08 02:08 03:23 WBC 11.75 H (4.50-10.00) 10*3/uL RBC 2.73 L (4.10-5.20) 10*6/uL Hgb 8.5 L (12.0-15.0) g/dL Hct 25.6 L (37.2-46.3) % MCV 93.8 (80.0-97.0) fL MCH 31.1 (27.0-32.0) pg MCHC 33.2 (32.0-37.0) g/dL Plt Count 131 L (140-440) 10*3/uL MPV 10.1 (9.5-12.2) fL Immature Gran % (Auto) 0.5 % Neutrophils % 88.2 % Lymphocytes % 6.7 % Monocytes % 4.3 % Eosinophils % 0.1 % Basophils % 0.2 % Immature Gran # 0.06 H (0.00-0.04) 10*3/uL Neutrophils # 10.37 H (1.80-7.70) 10*3/uL Lymphocytes # 0.79 L (0.90-5.00) 10*3/uL Monocytes # 0.50 (0.20-1.00) 10*3/uL Eosinophils # 0.01 L (0.04-0.35) 10*3/uL Basophils # 0.02 (0.00-0.10) 10*3/uL Sodium 139 (137-145) mmol/L Potassium 6.1 H* (3.5-5.1) mmol/L Chloride 102 (98-107) mmol/L Carbon Dioxide 20 L (22-30) mmol/L Anion Gap 17 mmol/L BUN 70 H (7-17) mg/dL Creatinine 10.76 H* (0.52-1.04) mg/dL Est GFR (CKD-EPI)AfAm 5 (>60 ml/min/1.73 sqM) Est GFR (CKD-EPI)NonAf 4 (>60 ml/min/1.73 sqM) Glucose 108 H (74-99) mg/dL Plasma Lactic Acid Tony 0.8 (0.7-2.0) mmol/L Calcium 8.4 (8.4-10.2) mg/dL Total Bilirubin 0.7 (0.2-1.3) mg/dL AST 15 (14-36) U/L ALT 13 (4-34) U/L Alkaline Phosphatase 134 H (38-126) U/L Total Protein 7.0 (6.3-8.2) g/dL Albumin 4.2 (3.5-5.0) g/dL Urine Color Urine Appearance (Clear) Urine pH (5.0-8.0) Ur Specific [place] (1.001-1.035) Urine Protein (Negative) Urine Glucose (UA) (Negative) Urine Ketones (Negative) Urine Blood (Negative) Urine Nitrite (Negative) Urine Bilirubin (Negative) Urine Urobilinogen (<2.0) mg/dL Ur Leukocyte Esterase (Negative) Urine RBC (0-5) /hpf Urine WBC (0-5) /hpf Ur Squamous Epith Cells (0-4) /hpf Urine Bacteria (None) /hpf Urine Yeast (Budding) (None) /hpf Urine HCG, Qual (Not Detectd) 03/22/25 03/22/25 Range/Units 04:11 04:11 WBC (4.50-10.00) 10*3/uL RBC (4.10-5.20) 10*6/uL Hgb (12.0-15.0) g/dL Hct (37.2-46.3) % MCV (80.0-97.0) fL MCH (27.0-32.0) pg MCHC (32.0-37.0) g/dL Plt Count (140-440) 10*3/uL MPV (9.5-12.2) fL Immature Gran % (Auto) % Neutrophils % % Lymphocytes % % Monocytes % % Eosinophils % % Basophils % % Immature Gran # (0.00-0.04) 10*3/uL Neutrophils # (1.80-7.70) 10*3/uL Lymphocytes # (0.90-5.00) 10*3/uL Monocytes # (0.20-1.00) 10*3/uL Eosinophils # (0.04-0.35) 10*3/uL Basophils # (0.00-0.10) 10*3/uL Sodium (137-145) mmol/L Potassium (3.5-5.1) mmol/L Chloride (98-107) mmol/L Carbon Dioxide (22-30) mmol/L Anion Gap mmol/L BUN (7-17) mg/dL Creatinine (0.52-1.04) mg/dL Est GFR (CKD-EPI)AfAm (>60 ml/min/1.73 sqM) Est GFR (CKD-EPI)NonAf (>60 ml/min/1.73 sqM) Glucose (74-99) mg/dL Plasma Lactic Acid Tony (0.7-2.0) mmol/L Calcium (8.4-10.2) mg/dL Total Bilirubin (0.2-1.3) mg/dL AST (14-36) U/L ALT (4-34) U/L Alkaline Phosphatase (38-126) U/L Total Protein (6.3-8.2) g/dL Albumin (3.5-5.0) g/dL Urine Color Colorless Urine Appearance Cloudy H (Clear) Urine pH 8.0 (5.0-8.0) Ur Specific [place] 1.006 (1.001-1.035) Urine Protein Trace H (Negative) Urine Glucose (UA) 1+ H (Negative) Urine Ketones Negative (Negative) Urine Blood Trace H (Negative) Urine Nitrite Negative (Negative) Urine Bilirubin Negative (Negative) Urine Urobilinogen <2.0 (<2.0) mg/dL Ur Leukocyte Esterase Moderate H (Negative) Urine RBC 2 (0-5) /hpf Urine WBC 5 (0-5) /hpf Ur Squamous Epith Cells 10 H (0-4) /hpf Urine Bacteria Rare H (None) /hpf Urine Yeast (Budding) Occasional H (None) /hpf Urine HCG, Qual Not Detected (Not Detectd) Disposition Is patient prescribed a controlled substance at d/c from ED?: No Time of Disposition: 03:00 Decision Date: 03/22/25 Decision Time: 04:58 <Pedro Luis Pastrana - Last Filed: 03/22/25 04:51> <Oscar Wilkes - Last Filed: 03/24/25 08:43> Clinical Impression: Renal cyst, [place], hemorrhage Disposition: ADMITTED IP TO THIS HOSP Condition: Fair
[2025-03-22 02:52] LABS: ALT 13 U/L (4-34); AST 15 U/L (14-36); African American GFR (CKD) 5 (>60 ml/min/1.73 sqM); Albumin 4.2 g/dL (3.5-5.0); Alkaline Phosphatase 134 U/L (38-126); Anion Gap 17 mmol/L; Blood Urea Nitrogen 70 mg/dL (7-17); Calcium 8.4 mg/dL (8.4-10.2); Carbon Dioxide 20 mmol/L (22-30); Chloride 102 mmol/L (98-107); Glucose 108 mg/dL (74-99); Non-African American GFR(CKD) 4 (>60 ml/min/1.73 sqM); Sodium 139 mmol/L (137-145); Total Bilirubin 0.7 mg/dL (0.2-1.3)
[2025-03-22 02:54] LABS: Potassium 6.1 mmol/L (3.5-5.1)
[2025-03-22] MEDS: SODIUM ZIRCONIUM CYCLOSILICATE 10 GM PACKET PO ONE (03:23)
[2025-03-22 03:32] LABS: Basophils # (A) 0.02 10*3/uL (0.00-0.10); Basophils % (A) 0.2 %; Eosinophils # (A) 0.01 10*3/uL (0.04-0.35); Eosinophils % (A) 0.1 %; HCT 25.6 % (37.2-46.3); HGB 8.5 g/dL (12.0-15.0); Lymphocytes # (A) 0.79 10*3/uL (0.90-5.00); Lymphocytes % (A) 6.7 %; MCH 31.1 pg (27.0-32.0); MCHC 33.2 g/dL (32.0-37.0); MCV 93.8 fL (80.0-97.0); Mean Platelet Volume 10.1 fL (9.5-12.2); Monocytes % (A) 4.3 %; Neutrophils # (A) 10.37 10*3/uL (1.80-7.70); Neutrophils % (A) 88.2 %; Platelet Count 131 10*3/uL (140-440); RBC 2.73 10*6/uL (4.10-5.20); RDW 14.3 % (11.5-14.5); WBC 11.75 10*3/uL (4.50-10.00)
[2025-03-22] MEDS: ONDANSETRON 4 MG/2 ML VIAL IVP STA (04:01)
[2025-03-22 04:23] LABS: Appearance,Urine Cloudy (Clear); Bacteria,Urine Rare /hpf; Bilirubin,Urine Negative (Negative); Blood,Urine Trace (Negative); Budding Yeast,Urine Occasional /hpf; Color,Urine Colorless; Glucose,Urine (UA) 1+ (Negative); Ketones,Urine Negative (Negative); Leukocyte Esterase,Urine Moderate (Negative); Nitrite,Urine Negative (Negative); Protein,Urine Trace (Negative); RBC,Urine 2 /hpf (0-5); Specific Gravity,Urine 1.006 (1.001-1.035); Squamous Epithelial Cell,Urine 10 /hpf (0-4); Urobilinogen,Urine <2.0 mg/dL (<2.0); WBC,Urine 5 /hpf (0-5)
[2025-03-22] MEDS ORDERED: NALOXONE 0.4 MG/ML 1 ML VIAL IV PRN (05:00)
[2025-03-22] MEDS: SODIUM CHLORIDE 0.9% 1,000 ML IV SCH (05:36)
[2025-03-22] MEDS: GABAPENTIN 300 MG CAP PO SCH (05:41)
[2025-03-22] MEDS: HYDROmorphone 0.5 MG/0.5 ML SYRINGE IVP PRN (05:43)
--- NOTE | 2025-03-22 08:19 | P.GSCN ---
History of Present Illness Consult date: 03/22/25 History of present illness: 29 yo female who we were asked to see for polycystic kidney disease and hemorrhagic cyst. She had abdominal pain and went to the er at [facility]. SHe was transferred to [facility] for urologic evaluation. the patients urine is clear. The patients cr is 10 Hgb 8.5. The patient is on dialysis. She has been on dialysis for approximately 4 years. She has had renal evaluation at the [facility] and now apparently at [facility]. She is on the transplant list. She has not had previous problems with hemorrhagic cysts. She has not had infections. Her pain is better this morning but she is still having some discomfort. Review of Systems All systems: negative - Constitutional Denies fever, Denies weight loss - EENT Eyes: denies blurred vision Ears, nose, mouth and throat: Denies dysphagia - Cardiovascular Denies chest pain, Denies shortness of breath - Respiratory Denies cough, Denies 7 - Gastrointestinal Reports as per HPI - Genitourinary Genitourinary: Denies dysuria, Denies hematuria - Integumentary Denies rash, Denies unusual bruising - Neurological Denies headaches, Denies syncope - Hematologic/Lymphatic Denies easy bleeding, Denies easy bruising Past Medical History Past Medical History: Dialysis, GERD/Reflux, Renal Disease, Syncope Additional Past Medical History / Comment(s): PATIENT IS FEELING VERY ILL AND FATIGUED. HAS kidney failure/autosomal recessive polycystic kidney disease (PATIENT SUSPECTS THAT HER KIDNEYS HAVE BEEN FAILING OVER THE PAST COUPLE OF YEARS). Seen [facility] 5 yrs ago BROTHER HAD KIDNEY DISEASE ( FROM A SUDD en INFECTION). Pas frequent heartburn. dialyisi M_W_F sycopal episode when , elevated heart rate, has neurapathy to aubree lower extremities, some days are good other days is unable to ambulate History of Any Multi-Drug Resistant Organisms: None Reported Past Surgical History: Adenoidectomy, Tonsillectomy Additional Past Surgical History / Comment(s): 03/02/21 AV FISTULA CREATION (BUT FAILED) redone to left antecubital. nasal reconstruction(fx nose peritoneal dialysis cath plament Past Anesthesia/Blood Transfusion Reactions: Postoperative Nausea & Vomiting (PONV) Additional Past Anesthesia/Blood Transfusion Reaction / Comm: with fistuala Past Psychological History: No Psychological Hx Reported Smoking Status: Former smoker Past Alcohol Use History: None Reported Past Drug Use History: None Reported - Past Family History Father Family Medical History: No Reported History Brother(s) Family Medical History: Renal Disease Additional Family Medical History / Comment(s): from kidney disease Mother Family Medical History: Cancer Additional Family Medical History / Comment(s): MELANOMA () Medications and Allergies Home Medications Medication Instructions Recorded Confirmed Type Gabapentin [Neurontin] 300 mg PO Q48H 05/08/24 05/13/24 History Metoprolol Succinate (ER) [Toprol 50 mg PO DAILY 05/08/24 05/13/24 History Xl] Sodium Bicarb (Unk) 1 tab PO DAILY 05/08/24 05/13/24 History Allergies Allergy/AdvReac Type Severity Reaction Status Date / Time epoetin beta [From Mircera] Allergy Anaphylaxis Verified 03/22/25 00:30 Surgical - Exam Vital Signs Temp Pulse Resp BP Pulse Ox 97.9 F 94 18 157/84 99 03/22/25 00:26 03/22/25 00:26 03/22/25 00:26 03/22/25 00:26 03/22/25 00:26 - General well developed, well nourished, no distress - Eyes normal ocular movement, no icteric - ENT no hearing loss, no congestion - Neck no masses, trachea midline - Respiratory normal respiratory effort, clear to auscultation - Abdomen Abdomen: soft, non tender, no guarding, no rigid, no rebound - Integumentary no rash, no abnormal pigmentation - Neurologic no disoriented, no combative - Psychiatric oriented to time, oriented to person, oriented to place, speech is normal, m [place] intact Results - Labs 03/22/25 03:23 03/22/25 02:08 Abnormal Lab Results - Last 24 Hours (Table) 03/22/25 03/22/25 03/22/25 Range/Units 02:08 03:23 04:11 WBC 11.75 H (4.50-10.00) 10*3/uL RBC 2.73 L (4.10-5.20) 10*6/uL Hgb 8.5 L (12.0-15.0) g/dL Hct 25.6 L (37.2-46.3) % Plt Count 131 L (140-440) 10*3/uL Immature Gran # 0.06 H (0.00-0.04) 10*3/uL Neutrophils # 10.37 H (1.80-7.70) 10*3/uL Lymphocytes # 0.79 L (0.90-5.00) 10*3/uL Eosinophils # 0.01 L (0.04-0.35) 10*3/uL Potassium 6.1 H* (3.5-5.1) mmol/L Carbon Dioxide 20 L (22-30) mmol/L BUN 70 H (7-17) mg/dL Creatinine 10.76 H* (0.52-1.04) mg/dL Glucose 108 H (74-99) mg/dL Alkaline Phosphatase 134 H (38-126) U/L Urine Appearance Cloudy H (Clear) Urine Protein Trace H (Negative) Urine Glucose (UA) 1+ H (Negative) Urine Blood Trace H (Negative) Ur Leukocyte Esterase Moderate H (Negative) Ur Squamous Epith Cells 10 H (0-4) /hpf Urine Bacteria Rare H (None) /hpf Urine Yeast (Budding) Occasional H (None) /hpf Diabetes panel 03/22/25 Range/Units 02:08 Sodium 139 (137-145) mmol/L Potassium 6.1 H* (3.5-5.1) mmol/L Chloride 102 (98-107) mmol/L Carbon Dioxide 20 L (22-30) mmol/L BUN 70 H (7-17) mg/dL Creatinine 10.76 H* (0.52-1.04) mg/dL Glucose 108 H (74-99) mg/dL Calcium 8.4 (8.4-10.2) mg/dL AST 15 (14-36) U/L ALT 13 (4-34) U/L Alkaline Phosphatase 134 H (38-126) U/L Total Protein 7.0 (6.3-8.2) g/dL Albumin 4.2 (3.5-5.0) g/dL Calcium panel 03/22/25 Range/Units 02:08 Calcium 8.4 (8.4-10.2) mg/dL Albumin 4.2 (3.5-5.0) g/dL Pituitary panel 03/22/25 Range/Units 02:08 Sodium 139 (137-145) mmol/L Potassium 6.1 H* (3.5-5.1) mmol/L Chloride 102 (98-107) mmol/L Carbon Dioxide 20 L (22-30) mmol/L BUN 70 H (7-17) mg/dL Creatinine 10.76 H* (0.52-1.04) mg/dL Glucose 108 H (74-99) mg/dL Calcium 8.4 (8.4-10.2) mg/dL Adrenal panel 03/22/25 Range/Units 02:08 Sodium 139 (137-145) mmol/L Potassium 6.1 H* (3.5-5.1) mmol/L Chloride 102 (98-107) mmol/L Carbon Dioxide 20 L (22-30) mmol/L BUN 70 H (7-17) mg/dL Creatinine 10.76 H* (0.52-1.04) mg/dL Glucose 108 H (74-99) mg/dL Calcium 8.4 (8.4-10.2) mg/dL Total Bilirubin 0.7 (0.2-1.3) mg/dL AST 15 (14-36) U/L ALT 13 (4-34) U/L Alkaline Phosphatase 134 H (38-126) U/L Total Protein 7.0 (6.3-8.2) g/dL Albumin 4.2 (3.5-5.0) g/dL - Imaging CT scan - abdomen: report reviewed, image reviewed CT scan - pelvis: report reviewed, image reviewed Assessment and Plan Assessment: Impression: Probable hemorrhagic cyst, kidney right. Polycystic kidney disease autosomal dominant. Chronic renal failure secondary to polycystic kidney disease. Recommendations: I reviewed the [facility] scan from [facility]. There appears to be 1 cyst that has hemorrhage on the right side. At this juncture I do not recommend any urologic intervention. Pain control and IV fluids are appropriate. We will follow Time with Patient: Greater than 30
[2025-03-22] MEDS: METOPROLOL SUCCINATE (ER) 50 MG TAB.ER.24H PO SCH (08:28)
--- NOTE | 2025-03-22 14:33 | P.HPIM ---
History of Present Illness H&P Date: 03/22/25 History of present illness; patient 29-year-old lady with past medical history significant for end-stage renal disease, polycystic kidney disease who presented to the ER as a transfer from [facility] for right flank pain. Patient has history of pulsatile kidney disease and initially presented to [facility] for right flank pain, workup done there showed patient to have right hemorrhagic cyst of her right kidney, patient was transferred to [facility] for evaluation by urology. Patient is complaining of right-sided abdominal pain at this time. Denies any nausea or vomiting. No complaint of fever or chills. Denies any chest pain or shortness of breath. Initial lab work done in the ER showed WBC 11.75, hemoglobin 8.5, platelet count 131, sodium 139, potassium 6.1, BUN 70, creatinine 0.76 glucose 108 AST 15, ALT 13 UA done showed moderate amount of leukocyte Estrace, urine WBC 5 Patient admitted to internal medicine service REVIEW OF SYSTEMS: CONSTITUTIONAL: No fever, no malaise, no fatigue. HEENT: No recent visual problems or hearing problems. Denied any sore throat. CARDIOVASCULAR: As mentioned above PULMONARY: No shortness of breath, no cough, no hemoptysis. GASTROINTESTINAL: As mentioned NEUROLOGICAL: No headaches, no weakness, no numbness. HEMATOLOGICAL: Denies any bleeding or petechiae. GENITOURINARY: Denies any burning micturition, frequency, or urgency. MUSCULOSKELETAL/RHEUMATOLOGICAL: Denies any joint pain, swelling, or any muscle pain. ENDOCRINE: Denies any polyuria or polydipsia. The rest of the 14-point review of systems is negative. PHYSICAL EXAMINATION: GENERAL: The patient is alert and oriented x3, not in any acute distress. Well developed, well nourished. HEENT: Pupils are round and equally reacting to light. EOMI. No scleral icterus. No conjunctival pallor. Normocephalic, atraumatic. No pharyngeal erythema. No th yromegaly. CARDIOVASCULAR: S1 and S2 present. No murmurs, rubs, or gallops. PULMONARY: Chest is clear to auscultation, no wheezing or crackles. ABDOMEN: Soft, nontender, nondistended, normoactive bowel sounds. No palpable organomegaly. MUSCULOSKELETAL: No joint swelling or deformity. EXTREMITIES: No cyanosis, clubbing, or pedal edema. NEUROLOGICAL: Gross neurological examination did not reveal any focal deficits. SKIN: No rashes. Assessment and plan Hemorrhagic cyst right kidney Right flank pain Hyperkalemia Polycystic kidney disease End-stage renal disease on dialysis Monitor vital signs Monitor CBC Monitor CMP Ordered hyperkalemia protocol with Lokelma Ordered IV fluids ordered pain management with as needed Dilaudid Resume home meds Consult urology Consult nephrology Labs and medication were reviewed.. Continue same treatment. Continue with symptomatic treatment. Resume home medication. Monitor labs and vitals. DVT and GI prophylaxis. Further recommendations as per clinical course of the patient Dictation was produced using dough dictation software. please excuse any grammatical, word or spelling errors. Past Medical History Past Medical History: Dialysis, GERD/Reflux, Renal Disease, Syncope Additional Past Medical History / Comment(s): PATIENT IS FEELING VERY ILL AND FATIGUED. HAS kidney failure/autosomal recessive polycystic kidney disease (PATIENT SUSPECTS THAT HER KIDNEYS HAVE BEEN FAILING OVER THE PAST COUPLE OF YEARS). Seen [facility] 5 yrs ago BROTHER HAD KIDNEY DISEASE ( FROM A SUDDen INFECTION). Pas frequent heartburn. dialyisi M_W_F sycopal episode when , elevated heart rate, has neurapathy to aubree lower extremities, some days are good other days is unable to ambulate History of Any Multi-Drug Resistant Organisms: None Reported Past Surgical History: Adenoidectomy, Tonsillectomy Additional Past Surgical History / Comment(s): 03/02/21 AV FISTULA CREATION (BUT FAILED) redone to left antecubital. nasal reconstruction(fx nose peritoneal dialysis cath plament Past Anesthesia/Blood Transfusion Reactions: Postoperative Nausea & Vomiting (PONV) Additional Past Anesthesia/Blood Transfusion Reaction / Comment(s): with fistuala Past Psychological History: No Psychological Hx Reported Smoking Status: Former smoker Past Alcohol Use History: None Reported Past Drug Use History: None Reported - Past Family History Father Family Medical History: No Reported History Brother(s) Family Medical History: Renal Disease Additional Family Medical History / Comment(s): from kidney disease Mother Family Medical History: Cancer Additional Family Medical History / Comment(s): MELANOMA () Medications and Allergies Home Medications Medication Instructions Recorded Confirmed Type Gabapentin [Neurontin] 300 mg PO Q48H 05/08/24 05/13/24 History Metoprolol Succinate (ER) [Toprol 50 mg PO DAILY 05/08/24 05/13/24 History Xl] Sodium Bicarb (Unk) 1 tab PO DAILY 05/08/24 05/13/24 History Allergies Allergy/AdvReac Type Severity Reaction Status Date / Time epoetin beta [From Mircera] Allergy Anaphylaxis Verified 03/22/25 00:30 Physical Exam Vitals: Vital Signs Temp Pulse Resp BP Pulse Ox 03/22/25 07:26 98.0 F 81 16 151/93 100 03/22/25 05:42 99 18 141/88 99 03/22/25 02:12 79 19 141/75 97 03/22/25 00:26 97.9 F 94 18 157/84 99 Intake and Output 03/21/25 03/22/25 03/22/25 22:59 06:59 14:59 Other: Weight 70.307 kg Results CBC & Chem 7: 03/22/25 03:23 03/22/25 02:08 Labs: Abnormal Lab Results - Last 24 Hours (Table) 03/22/25 03/22/25 03/22/25 Range/Units 02:08 03:23 04:11 WBC 11.75 H (4.50-10.00) 10*3/uL RBC 2.73 L (4.10-5.20) 10*6/uL Hgb 8.5 L (12.0-15.0) g/dL Hct 25.6 L (37.2-46.3) % Plt Count 131 L (140-440) 10*3/uL Immature Gran # 0.06 H (0.00-0.04) 10*3/uL Neutrophils # 10.37 H (1.80-7.70) 10*3/uL Lymphocytes # 0.79 L (0.90-5.00) 10*3/uL Eosinophils # 0.01 L (0.04-0.35) 10*3/uL Potassium 6.1 H* (3.5-5.1) mmol/L Carbon Dioxide 20 L (22-30) mmol/L BUN 70 H (7-17) mg/dL Creatinine 10.76 H* (0.52-1.04) mg/dL Glucose 108 H (74-99) mg/dL Alkaline Phosphatase 134 H (38-126) U/L Urine Appearance Cloudy H (Clear) Urine Protein Trace H (Negative) Urine Glucose (UA) 1+ H (Negative) Urine Blood Trace H (Negative) Ur Leukocyte Esterase Moderate H (Negative) Ur Squamous Epith Cells 10 H (0-4) /hpf Urine Bacteria Rare H (None) /hpf Urine Yeast (Budding) Occasional H (None) /hpf
--- NOTE | 2025-03-22 14:34 | P.NPCON ---
History of Present Illness - Reason for Consult Consult date: 03/22/25 - Chief Complaint Flank Pain - History of Present Illness This is a 29-year-old female with history including polycystic kidney disease and ESRD presenting via EMS from [facility] for right flank/abdominal pain (04/29) since 1500 this afternoon. Patient states she underwent a workup at [facility] where it was discovered she had a possible hemorrhagic cyst on her right kidney causing her significant pain with associated nausea. Patient was then transferred to [facility] ER for further evaluation by urology. Patient denies fever, chills, chest pain, dyspnea, hematemesis, urinary symptoms. She missed HD yesterday due to being in ED. Currently feels OK and denies any other complaints. Patient is awake, comfortable, no acute distress Examination of the heart S1 and S2 Examination of the lungs shows bilateral breath sounds are heard Abdomen is soft nontender Examination of lower extremity shows no significant edema Review of Systems Constitutional: Reports as per HPI Past Medical History Past Medical History: Dialysis, GERD/Reflux, Renal Disease, Syncope Additional Past Medical History / Comment(s): PATIENT IS FEELING VERY ILL AND FATIGUED. HAS kidney failure/autosomal recessive polycystic kidney disease (PATIENT SUSPECTS THAT HER KIDNEYS HAVE BEEN FAILING OVER THE PAST COUPLE OF YEARS). Seen [facility] 5 yrs ago BROTHER HAD KIDNEY DISEASE ( FROM A SUDDen INFECTION). Pas frequent heartburn. dialyisi M_W_F sycopal episode when , elevated heart rate, has neurapathy to aubree lower extremities, some days are good other days is unable to ambulate History of Any Multi-Drug Resistant Organisms: None Reported Past Surgical History: Adenoidectomy, Tonsillectomy Additional Past Surgical History / Comment(s): 03/02/21 AV FISTULA CREATION (BUT FAILED) redone to left antecubital. nasal reconstruction(fx nose peritoneal dialysis cath plament Past Anesthesia/Blood Transfusion Reactions: Postoperative Nausea & Vomiting (PONV) Additional Past Anesthesia/Blood Transfusion Reaction / Comment(s): with fistu ala Past Psychological History: No Psychological Hx Reported Smoking Status: Former smoker Past Alcohol Use History: None Reported Past Drug Use History: None Reported - Past Family History Father Family Medical History: No Reported History Brother(s) Family Medical History: Renal Disease Additional Family Medical History / Comment(s): from kidney disease Mother Family Medical History: Cancer Additional Family Medical History / Comment(s): MELANOMA () Medications and Allergies Home Medications Medication Instructions Recorded Confirmed Type Calcium Acetate [Phoslo] 1,334 mg PO TID-W/MEALS 03/22/25 03/22/25 History calcitrioL [Rocaltrol (GEQ)] 1 mcg PO BID 03/22/25 03/22/25 History Allergies Allergy/AdvReac Type Severity Reaction Status Date / Time epoetin beta [From Mircera] Allergy Anaphylaxis Verified 03/22/25 11:26 Physical Exam Vitals: Vital Signs Temp Pulse Resp BP Pulse Ox 03/22/25 11:32 151/94 03/22/25 07:26 98.0 F 81 16 151/93 100 03/22/25 05:42 99 18 141/88 99 03/22/25 02:12 79 19 141/75 97 03/22/25 00:26 97.9 F 94 18 157/84 99 Intake and Output 03/21/25 03/22/25 03/22/25 22:59 06:59 14:59 Other: Weight 70.307 kg Results - Lab Results Most recent lab results Calcium 8.4 mg/dL (8.4-10.2) 03/22/25 02:08 03/22/25 03:23 03/22/25 02:08 Assessment and Plan Assessment: 1. ESRD on HD MWF. Access LUE AVF 2. Hyperkalemia due to missed HD 3. ADPKD with hemorrhagic cyst 4. HTN with CKD 5. Anemia with CKD 6/ MBD with CKD Plan: HD ordered for today Will correct high K with HD Urology recommendations for hemorrhagic cyst, conservative care for now
[2025-03-22] MEDS: ACETAMINOPHEN TAB 325 MG TAB PO PRN (16:45)
[2025-03-22] MEDS: METOCLOPRAMIDE 5 MG/ML 2 ML VIAL IVP PRN (17:59)
[2025-03-22] MEDS: ONDANSETRON 4 MG/2 ML VIAL IVP PRN (22:46)
[2025-03-23 01:06] LABS: Basophils # (A) 0.02 10*3/uL (0.00-0.10); Basophils % (A) 0.2 %; Eosinophils % (A) 1.1 %; HCT 23.6 % (37.2-46.3); Lymphocytes # (A) 0.86 10*3/uL (0.90-5.00); Lymphocytes % (A) 9.3 %; MCHC 33.9 g/dL (32.0-37.0); MCV 94.4 fL (80.0-97.0); Mean Platelet Volume 9.8 fL (9.5-12.2); Monocytes # (A) 0.61 10*3/uL (0.20-1.00); Monocytes % (A) 6.6 %; Neutrophils # (A) 7.66 10*3/uL (1.80-7.70); Neutrophils % (A) 82.6 %; Platelet Count 143 10*3/uL (140-440); RDW 14.2 % (11.5-14.5); WBC 9.27 10*3/uL (4.50-10.00)
[2025-03-23 01:20] LABS: ALT 13 U/L (4-34); AST 13 U/L (14-36); African American GFR (CKD) 9 (>60 ml/min/1.73 sqM); Albumin 3.7 g/dL (3.5-5.0); Alkaline Phosphatase 123 U/L (38-126); Anion Gap 13 mmol/L; Blood Urea Nitrogen 32 mg/dL (7-17); Calcium 8.1 mg/dL (8.4-10.2); Carbon Dioxide 33 mmol/L (22-30); Chloride 87 mmol/L (98-107); Glucose 94 mg/dL (74-99); Non-African American GFR(CKD) 8 (>60 ml/min/1.73 sqM); Potassium 4.2 mmol/L (3.5-5.1); Sodium 133 mmol/L (137-145); Total Bilirubin 0.6 mg/dL (0.2-1.3); Total Protein 6.4 g/dL (6.3-8.2)
[2025-03-23] MEDS: HYDROmorphone 0.5 MG/0.5 ML SYRINGE IVP ONE (03:38)
[2025-03-23] MEDS: CALCIUM ACETATE 667 MG TAB PO SCH (11:09)
--- NOTE | 2025-03-23 11:12 | P.PN ---
Subjective Progress Note Date: 03/23/25 The patient is in the hospital with right flank pain probably due to hemorrhagic cyst. She has polycystic kidneys and chronic renal failure with dialysis. She is feeling a little better today. Objective - Vital Signs Vital signs: Vital Signs Temp 98.4 F 03/23/25 08:25 Pulse 111 H 03/23/25 08:25 Resp 19 03/23/25 08:25 BP 132/80 03/23/25 08:25 Pulse Ox 94 L 03/23/25 08:25 FiO2 Intake & Output 03/22/25 03/23/25 03/23/25 18:59 06:59 18:59 Intake Total 500 10 Output Total 500 Balance 0 10 Weight 100 kg Intake: IV 10 Invasive Line 3 10 Hemodialysis 500 Output: Hemodialysis 500 Hemodialysis Net Amount 0 Other: # Voids 1 - Labs CBC & Chem 7: 03/23/25 00:49 03/23/25 00:49 Labs: Abnormal Lab Results - Last 24 Hours (Table) 03/23/25 03/23/25 Range/Units 00:49 00:49 RBC 2.50 L (4.10-5.20) 10*6/uL Hgb 8.0 L (12.0-15.0) g/dL Hct 23.6 L (37.2-46.3) % Lymphocytes # 0.86 L (0.90-5.00) 10*3/uL Sodium 133 L (137-145) mmol/L Chloride 87 L (98-107) mmol/L Carbon Dioxide 33 H (22-30) mmol/L BUN 32 H (7-17) mg/dL Creatinine 6.58 H (0.52-1.04) mg/dL Calcium 8.1 L (8.4-10.2) mg/dL AST 13 L (14-36) U/L Assessment and Plan Assessment: Impression: Polycystic kidney disease with chronic renal failure. Hemorrhagic cyst right. Right flank pain secondary to the hemorrhagic cyst improving. Recommendations: From a urologic standpoint whenever pain can be controlled with oral pain medicine she can be discharged home. I reviewed the CAT scan and this does appear to be a hemorrhagic cyst. The patient apparently will be going to [place] for evaluation for transplantation. They should review the CAT scan at that point in time. She probably should have a follow-up CAT scan in the future to make sure the hemorrhagic cyst is not expanding.
--- NOTE | 2025-03-23 12:30 | P.PN ---
Subjective Progress Note Date: 03/23/25 Patient seen in follow up for ESRD. Tolerated HD yesterday. Worried about getting dehydrated with vomiting from pain. Tolerating water intake. Patient is lethargic, comfortable, no acute distress Examination of the heart S1 and S2 Examination of the lungs bilateral breath sounds are heard Abdomen is soft, non-tender Examination of lower extremities shows no edema Objective - Vital Signs Vital signs: Vital Signs Temp 98.4 F 03/23/25 08:25 Pulse 111 H 03/23/25 08:25 Resp 19 03/23/25 08:25 BP 132/80 03/23/25 08:25 Pulse Ox 94 L 03/23/25 08:25 FiO2 Intake & Output 03/22/25 03/23/25 03/23/25 18:59 06:59 18:59 Intake Total 500 10 Output Total 500 Balance 0 10 Weight 100 kg Intake: IV 10 Invasive Line 3 10 Hemodialysis 500 Output: Hemodialysis 500 Hemodialysis Net Amount 0 Other: # Voids 1 - Labs CBC & Chem 7: 03/23/25 00:49 03/23/25 00:49 Labs: Abnormal Lab Results - Last 24 Hours (Table) 03/23/25 03/23/25 Range/Units 00:49 00:49 RBC 2.50 L (4.10-5.20) 10*6/uL Hgb 8.0 L (12.0-15.0) g/dL Hct 23.6 L (37.2-46.3) % Lymphocytes # 0.86 L (0.90-5.00) 10*3/uL Sodium 133 L (137-145) mmol/L Chloride 87 L (98-107) mmol/L Carbon Dioxide 33 H (22-30) mmol/L BUN 32 H (7-17) mg/dL Creatinine 6.58 H (0.52-1.04) mg/dL Calcium 8.1 L (8.4-10.2) mg/dL AST 13 L (14-36) U/L Assessment and Plan Assessment: 1. ESRD on HD MWF. Access LUE AVF 2. Hyperkalemia due to missed HD, improved. 3. ADPKD with hemorrhagic cyst 4. HTN with CKD 5. Anemia with CKD 6/ MBD with CKD Plan: Continue HD MWF schedule Urology recommendations for hemorrhagic cyst, conservative care for now
--- NOTE | 2025-03-23 13:38 | P.PN ---
Subjective Progress Note Date: 03/23/25 patient 29-year-old lady with past medical history significant for end-stage renal disease, polycystic kidney disease who presented to the ER as a transfer from [facility] for right flank pain. Patient has history of pulsatile kidney disease and initially presented to [facility] for right flank pain, workup done there showed patient to have right hemorrhagic cyst of her right kidney, patient was transferred to [facility] for evaluation by urology. Patient is complaining of right-sided abdominal pain at this time. Denies any nausea or vomiting. No complaint of fever or chills. Denies any chest pain or shortness of breath. Initial lab work done in the ER showed WBC 11.75, hemoglobin 8.5, platelet count 131, sodium 139, potassium 6.1, BUN 70, creatinine 0.76 glucose 108 AST 15, ALT 13 UA done showed moderate amount of leukocyte Estrace, urine WBC 5 Patient admitted to internal medicine service 03/23. Patient seen and examined. Blood work done showed WBC 9.27, hemoglobin 8, sodium 133, potassium 4.2, BUN 32, creatinine 6.5. States pain has improved, currently on IV pain medication, added oxycodone oral for pain control REVIEW OF SYSTEMS: CONSTITUTIONAL: No fever, no malaise,. CARDIOVASCULAR: No chest pain, no palpitations, no syncope. PULMONARY: No shortness of breath, no cough, GASTROINTESTINAL: No diarrhea, no nausea, no vomiting, no abdominal pain. NEUROLOGICAL: No headaches, no weakness, PHYSICAL EXAMINATION: GENERAL: The patient is alert and oriented x3, not in any acute distress. Well developed, well nourished. HEENT: Pupils are round and equally reacting to light. EOMI. No scleral icterus. No conjunctival pallor. Normocephalic, atraumatic. No pharyngeal erythema. No thyromegaly. CARDIOVASCULAR: S1 and S2 present. No murmurs, rubs, or gallops. PULMONARY: Chest is clear to auscultation, no wheezing or crackles. ABDOMEN: Soft, nontender, nondistended, normoactive bowel sounds. No palpable organomegaly. MUSCULOSKELETAL: No joint swelling or deformity. EXTREMITIES: No cyanosis, clubbing, or pedal edema. NEUROLOGICAL: Gross neurological examination did not reveal any focal deficits. SKIN: No rashes. Assessment and plan Hemorrhagic cyst right kidney Right flank pain Hyperkalemia Polycystic kidney disease End-stage renal disease on dialysis Monitor vital signs Monitor CBC Monitor CMP Continue pain management with as needed Dilaudid, added oxycodone Continue Toprol Continue dialysis with nephrology Urology following Labs and medication were reviewed.. Continue same treatment. Continue with symptomatic treatment. Resume home medication. Monitor labs and vitals. DVT and GI prophylaxis. Further recommendations as per clinical course of the patient Dictation was produced using [employer] dictation software. please excuse any grammatical, word or spelling errors. Objective - Vital Signs Vital signs: Vital Signs Temp 98.4 F 03/23/25 08:25 Pulse 111 H 03/23/25 08:25 Resp 19 03/23/25 08:25 BP 132/80 03/23/25 08:25 Pulse Ox 94 L 03/23/25 08:25 FiO2 Intake & Output 03/22/25 03/23/25 03/23/25 18:59 06:59 18:59 Intake Total 500 10 Output Total 500 Balance 0 10 Weight 100 kg Intake: IV 10 Invasive Line 3 10 Hemodialysis 500 Output: Hemodialysis 500 Hemodialysis Net Amount 0 Other: # Voids 1 - Labs CBC & Chem 7: 03/23/25 00:49 03/23/25 00:49 Labs: Abnormal Lab Results - Last 24 Hours (Table) 03/23/25 03/23/25 Range/Units 00:49 00:49 RBC 2.50 L (4.10-5.20) 10*6/uL Hgb 8.0 L (12.0-15.0) g/dL Hct 23.6 L (37.2-46.3) % Lymphocytes # 0.86 L (0.90-5.00) 10*3/uL Sodium 133 L (137-145) mmol/L Chloride 87 L (98-107) mmol/L Carbon Dioxide 33 H (22-30) mmol/L BUN 32 H (7-17) mg/dL Creatinine 6.58 H (0.52-1.04) mg/dL Calcium 8.1 L (8.4-10.2) mg/dL AST 13 L (14-36) U/L
[2025-03-24 07:12] LABS: Basophils # (A) 0.02 10*3/uL (0.00-0.10); Basophils % (A) 0.2 %; Eosinophils # (A) 0.21 10*3/uL (0.04-0.35); Eosinophils % (A) 2.1 %; HCT 20.6 % (37.2-46.3); Lymphocytes # (A) 1.69 10*3/uL (0.90-5.00); Lymphocytes % (A) 16.8 %; MCH 31.8 pg (27.0-32.0); MCHC 33.5 g/dL (32.0-37.0); MCV 94.9 fL (80.0-97.0); Mean Platelet Volume 10.2 fL (9.5-12.2); Monocytes # (A) 0.83 10*3/uL (0.20-1.00); Monocytes % (A) 8.3 %; Neutrophils # (A) 7.23 10*3/uL (1.80-7.70); Platelet Count 185 10*3/uL (140-440); RBC 2.17 10*6/uL (4.10-5.20); RDW 14.5 % (11.5-14.5); WBC 10.04 10*3/uL (4.50-10.00)
[2025-03-24 07:13] LABS: ALT 11 U/L (4-34); AST 11 U/L (14-36); African American GFR (CKD) 5 (>60 ml/min/1.73 sqM); Albumin 3.7 g/dL (3.5-5.0); Alkaline Phosphatase 106 U/L (38-126); Anion Gap 13 mmol/L; Blood Urea Nitrogen 55 mg/dL (7-17); Calcium 7.4 mg/dL (8.4-10.2); Carbon Dioxide 31 mmol/L (22-30); Chloride 89 mmol/L (98-107); Glucose 101 mg/dL (74-99); Non-African American GFR(CKD) 5 (>60 ml/min/1.73 sqM); Potassium 4.7 mmol/L (3.5-5.1); Sodium 133 mmol/L (137-145); Total Bilirubin 0.6 mg/dL (0.2-1.3); Total Protein 6.3 g/dL (6.3-8.2)
[2025-03-24 07:30] LABS: HGB 6.9 g/dL (12.0-15.0)
--- NOTE | 2025-03-24 09:43 | P.PN ---
Subjective Patient is seen in follow-up for end-stage renal disease. She is maintained on hemodialysis on Monday schedule. Tolerating dialysis well. Hemodynamically stable. Denies any active bleeding. Vital signs are stable. General: No acute distress. HEENT: Head exam is unremarkable. LUNGS: No audible rhonchi or wheezes. HEART: Rate and Rhythm are regular. ABDOMEN: Nontender. EXTREMITITES: No edema. Objective - Vital Signs Vital signs: Vital Signs Temp 98.1 F 03/24/25 08:00 Pulse 98 03/24/25 08:00 Resp 14 03/24/25 08:00 BP 130/71 03/24/25 08:00 Pulse Ox 97 03/24/25 08:00 FiO2 Intake & Output 03/23/25 03/24/25 03/24/25 18:59 06:59 18:59 Intake Total 20 490 0 Balance 20 490 0 Weight 68.3 kg Intake: IV 20 10 Invasive Line 3 20 10 Oral 480 0 Other: Voiding Method Toilet # Voids 2 - Labs CBC & Chem 7: 03/24/25 06:34 03/24/25 06:34 Labs: Abnormal Lab Results - Last 24 Hours (Table) 03/24/25 03/24/25 03/24/25 Range/Units 06:34 06:34 08:11 WBC 10.04 H (4.50-10.00) 10*3/uL RBC 2.17 L (4.10-5.20) 10*6/uL Hgb 6.9 L* (12.0-15.0) g/dL Hct 20.6 L (37.2-46.3) % Immature Gran # 0.06 H (0.00-0.04) 10*3/uL Sodium 133 L (137-145) mmol/L Chloride 89 L (98-107) mmol/L Carbon Dioxide 31 H (22-30) mmol/L BUN 55 H (7-17) mg/dL Creatinine 10.19 H* (0.52-1.04) mg/dL Glucose 101 H (74-99) mg/dL Calcium 7.4 L (8.4-10.2) mg/dL AST 11 L (14-36) U/L Crossmatch See Detail Assessment and Plan Plan: Assessment: 1. End-stage renal disease maintained on hemodialysis on Monday schedule. 2. Hyperkalemia secondary to chronic kidney disease. Improved postdialysis. 3. Acute blood loss anemia. 4. Hemorrhagic cyst. Seen by urology. 5. Chronic kidney disease mineral bone disease maintained on PhosLo and calcitriol. Plan: Currently seen while undergoing hemodialysis. Scheduled to receive a unit of blood today. IV DDAVP x 1 dose today. Allergic to MIRNA.
[2025-03-24] MEDS: DESMOPRESSIN ACETATE 18 MCG in SODIUM CHLORIDE 0.9% 50 ML IVPB ONE (12:53)
[2025-03-24] MEDS: HYDROmorphone 0.5 MG/0.5 ML SYRINGE IVP PRN (13:01)
--- NOTE | 2025-03-24 14:17 | P.PN ---
Subjective Progress Note Date: 03/24/25 Continues to have right flank pain with radiation to the right lower quadrant. Hemoglobin is 6.9 from 8, she is receiving 1 unit of blood Objective - Vital Signs Vital signs: Vital Signs Temp 98.2 F 03/24/25 12:15 Pulse 103 H 03/24/25 12:15 Resp 19 03/24/25 12:15 BP 115/61 03/24/25 12:15 Pulse Ox 95 03/24/25 10:19 FiO2 Intake & Output 03/23/25 03/24/25 03/24/25 18:59 06:59 18:59 Intake Total 20 490 1210 Output Total 900 Balance 20 490 310 Weight 68.3 kg Intake: IV 20 10 Invasive Line 3 20 10 Oral 480 0 Blood Product 310 Rc As-1 Unit 310 [id number] Hemodialysis 900 Output: Hemodialysis 900 Hemodialysis Net Amount 0 Other: Voiding Method Toilet # Voids 2 - Constitutional General appearance: Present: no acute distress - Gastrointestinal General gastrointestinal: Present: soft, tenderness (Right lower quadrant). Absent: distended - Labs CBC & Chem 7: 03/24/25 06:34 03/24/25 06:34 Labs: Abnormal Lab Results - Last 24 Hours (Table) 03/24/25 03/24/25 03/24/25 Range/Units 06:34 06:34 08:11 WBC 10.04 H (4.50-10.00) 10*3/uL RBC 2.17 L (4.10-5.20) 10*6/uL Hgb 6.9 L* (12.0-15.0) g/dL Hct 20.6 L (37.2-46.3) % Immature Gran # 0.06 H (0.00-0.04) 10*3/uL Sodium 133 L (137-145) mmol/L Chloride 89 L (98-107) mmol/L Carbon Dioxide 31 H (22-30) mmol/L BUN 55 H (7-17) mg/dL Creatinine 10.19 H* (0.52-1.04) mg/dL Glucose 101 H (74-99) mg/dL Calcium 7.4 L (8.4-10.2) mg/dL AST 11 L (14-36) U/L Crossmatch See Detail Assessment and Plan Assessment: This is a 29-year-old female with history of polycystic kidney disease on hemodialysis. History of right-sided hemorrhagic cyst, continues to have right- sided flank pain. Hemoglobin did drop down to 6.9 from 8. Given the persistent pain we will obtain follow-up imaging -CT abdomen pelvis - Continue pain control
--- NOTE | 2025-03-24 15:08 | CT ---
EXAMINATION TYPE: CT abdomen pelvis wo con DATE OF EXAM: 03/24/2025 2:32 PM COMPARISON: None. CLINICAL INDICATION: Female, 29 years old with history of right renal cyst, right renal cyst TECHNIQUE: Axial images were obtained from above the diaphragm to the pubic rami in the axial plane a t 5 mm thick sections. Reconstructed images are reviewed on the computer in the coronal plane. CONTRAST: mL of . Study performed without Oral Contrast DLP: 467.2 mGycm, Automated exposure control for dose reduction was used. FINDINGS: Limited CT sections are obtained the lung bases. There is some streaky opacity through the right michael g base. Correlate for atelectasis.. CT ABDOMEN: Liver: There is a calcified granuloma in the superior right lobe liver. Spleen: Scattered calcified granulomata within the spleen. Pancreas: Normal Adrenal glands: The adrenal glands are normal. Gallbladder: Normal Kidneys: There is a large intermediate density inferior to the right kidney measuring 8.5 x 9.0 cm in averaging approximately 68 Hounsfield units. Hemorrhage may be present at this level. This appears l argely new from the comparison study from [facility] 03/21/2025. This may be coming from a 5.3 cm mass along the inferior lateral pole right kidney. Perinephric stranding is present. There are multiple nonobstructing renal stones on the right. The largest measures 0.8 cm in the midportion. No hydronephrosis or hydroureter is evident.. There are parapelvic adjacent cysts at the superior me dial right kidney measuring 2.3 and 3.9 cm. Multiple nonobstructing renal stones are present within t he left kidney. There may be multiple small cysts within the cortex of the left kidney. A large cyst on the left measures 3.5 cm along the lateral left kidney. No hydronephrosis or hydroureter on the le ft is evident. Aorta: Unremarkable. Inferior vena cava: Normal. CT PELVIS: Small amount of lower density free fluid is within the pelvis and right paracolic gutter. Some minimal fluid may be adjacent to the liver. Loops of bowel within the abdomen and pelvis are normal. There are loops of bowel which are incom pletely distended or lack oral contrast limiting their evaluation. Appendix: Normal as visualized. Urinary bladder: Partially decompressed but otherwise unremarkable. Genitourinary structures: Uterus is unremarkable. Adnexa appear normal. Osseous structures: No suspicious lytic or sclerotic lesions. IMPRESSION: 1. Area of intermediate density inferior to the right kidney is new from 03-21-2025 may be a large hem orrhage measuring 8.5 x 9.0 cm. 2. There may be a 5.3 cm mass on the inferior lateral pole right kidney. Workup for neoplasm. 3. Multiple bilateral renal cysts and nonobstructing renal stones. A [place] critical message alert has been initiated for STEPAN [id number] via the [employer] Critical Results System on 03/24/2025 3:05 PM. This message alert has been sent to Annita Dominguez via the preferences provided by the clinician for the receipt of Radiology Critical Findings. Message ID [id number]. [facility], Workstation: [email or web address], 03/24/2025 3:05 PM
[2025-03-24 18:30] LABS: HCT 20.8 % (37.2-46.3); MCH 31.1 pg (27.0-32.0); MCHC 33.7 g/dL (32.0-37.0); MCV 92.4 fL (80.0-97.0); Mean Platelet Volume 10.2 fL (9.5-12.2); Platelet Count 159 10*3/uL (140-440); RBC 2.25 10*6/uL (4.10-5.20); RDW 16.5 % (11.5-14.5); WBC 9.64 10*3/uL (4.50-10.00)
--- NOTE | 2025-03-24 22:05 | P.PN ---
Progress Note - Text Progress Note Date: 03/24/25 Patient hemoglobin 7 from 6.9 after [address] this morning showed evidence of a large hematoma inferior to the kidney and multiple renal cysts. She is tachycardic heart rate in the 110s to 120s. She is maintaining her blood pressure. At this time given the finding of CT and the anemia, I recommend transferring patient to a tertiary center with IR ability for possible embolization. - Keep bedrest - CBC every 6, continue transfusion as needed - Recommend transferring to a facility with interventional radiology and ability for embolization.
[2025-03-25 02:08] LABS: HCT 24.1 % (37.2-46.3); HGB 8.2 g/dL (12.0-15.0); MCH 31.2 pg (27.0-32.0); MCV 91.6 fL (80.0-97.0); Mean Platelet Volume 9.6 fL (9.5-12.2); Platelet Count 152 10*3/uL (140-440); RBC 2.63 10*6/uL (4.10-5.20); WBC 9.22 10*3/uL (4.50-10.00)
[2025-03-25 06:25] LABS: Basophils # (A) 0.03 10*3/uL (0.00-0.10); Basophils % (A) 0.2 %; Eosinophils # (A) 0.23 10*3/uL (0.04-0.35); Eosinophils % (A) 1.5 %; HCT 26.3 % (37.2-46.3); HGB 8.7 g/dL (12.0-15.0); Lymphocytes # (A) 1.87 10*3/uL (0.90-5.00); Lymphocytes % (A) 12.4 %; MCH 30.2 pg (27.0-32.0); MCHC 33.1 g/dL (32.0-37.0); MCV 91.3 fL (80.0-97.0); Mean Platelet Volume 9.6 fL (9.5-12.2); Monocytes # (A) 1.15 10*3/uL (0.20-1.00); Monocytes % (A) 7.6 %; Neutrophils # (A) 11.74 10*3/uL (1.80-7.70); Neutrophils % (A) 77.6 %; Platelet Count 248 10*3/uL (140-440); RBC 2.88 10*6/uL (4.10-5.20); RDW 16.3 % (11.5-14.5); WBC 15.13 10*3/uL (4.50-10.00)
[2025-03-25 06:48] LABS: African American GFR (CKD) 8 (>60 ml/min/1.73 sqM); Anion Gap 17 mmol/L; Blood Urea Nitrogen 31 mg/dL (7-17); Calcium 8.7 mg/dL (8.4-10.2); Carbon Dioxide 26 mmol/L (22-30); Chloride 93 mmol/L (98-107); Glucose 104 mg/dL (74-99); Non-African American GFR(CKD) 7 (>60 ml/min/1.73 sqM); Phosphorus 6.9 mg/dL (2.5-4.5); Potassium 4.6 mmol/L (3.5-5.1); Sodium 136 mmol/L (137-145)
[2025-03-25 07:43] VITALS: RESP 17
[2025-03-25] MEDS: HYDROmorphone 1 MG/ML 1 ML SYRINGE IVP PRN (08:46)
--- NOTE | 2025-03-25 09:51 | P.PN ---
Subjective Patient is seen in follow-up for end-stage renal disease. She is maintained on hemodialysis on Monday schedule. No problems with dialysis yesterday. Hemodynamically stable. Denies any active bleeding. Hemoglobin 8.7 today. Vital signs are stable. General: No acute distress. HEENT: Head exam is unremarkable. LUNGS: No audible rhonchi or wheezes. HEART: Rate and Rhythm are regular. ABDOMEN: Right-sided abdominal tenderness present. EXTREMITITES: No edema. Objective - Vital Signs Vital signs: Vital Signs Temp 99.3 F 03/25/25 07:42 Pulse 119 H 03/25/25 07:42 Resp 17 03/25/25 07:42 BP 136/78 03/25/25 07:42 Pulse Ox 95 03/25/25 07:42 FiO2 Intake & Output 03/24/25 03/25/25 03/25/25 18:59 06:59 18:59 Intake Total 1970 320 128 Output Total 900 Balance 1070 320 128 Weight 67.5 kg Intake: IV 10 10 10 Invasive Line 3 10 10 10 Intake, IV Titration 50 Amount Desmopressin Acetate 18 50 mcg In Sodium Chloride 0. 9% 50 ml @ 200 mls/hr IVPB ONCE ONE Rx#: [id number] Oral 700 118 Blood Product 310 310 Rc As-1 Unit 310 [id number] Rc As-1 Unit 310 [id number] Hemodialysis 900 Output: Hemodialysis 900 Hemodialysis Net Amount 0 Other: Voiding Method Toilet Toilet # Voids 4 1 - Labs CBC & Chem 7: 03/25/25 05:59 03/25/25 05:59 Labs: Abnormal Lab Results - Last 24 Hours (Table) 03/24/25 03/24/25 03/25/25 Range/Units 08:11 18:13 01:57 WBC (4.50-10.00) 10*3/uL RBC 2.25 L 2.63 L (4.10-5.20) 10*6/uL Hgb 7.0 L 8.2 L (12.0-15.0) g/dL Hct 20.8 L 24.1 L (37.2-46.3) % Immature Gran # (0.00-0.04) 10*3/uL Neutrophils # (1.80-7.70) 10*3/uL Monocytes # (0.20-1.00) 10*3/uL Sodium (137-145) mmol/L Chloride (98-107) mmol/L BUN (7-17) mg/dL Creatinine (0.52-1.04) mg/dL Glucose (74-99) mg/dL Phosphorus (2.5-4.5) mg/dL Crossmatch See Detail 03/25/25 03/25/25 Range/Units 05:59 05:59 WBC 15.13 H (4.50-10.00) 10*3/uL RBC 2.88 L (4.10-5.20) 10*6/uL Hgb 8.7 L (12.0-15.0) g/dL Hct 26.3 L (37.2-46.3) % Immature Gran # 0.11 H (0.00-0.04) 10*3/uL Neutrophils # 11.74 H (1.80-7.70) 10*3/uL Monocytes # 1.15 H (0.20-1.00) 10*3/uL Sodium 136 L (137-145) mmol/L Chloride 93 L (98-107) mmol/L BUN 31 H (7-17) mg/dL Creatinine 7.23 H* (0.52-1.04) mg/dL Glucose 104 H (74-99) mg/dL Phosphorus 6.9 H (2.5-4.5) mg/dL Crossmatch Assessment and Plan Plan: Assessment: 1. End-stage renal disease maintained on hemodialysis on Monday schedule. 2. Hyperkalemia secondary to chronic kidney disease. Improved postdialysis. 3. Acute blood loss anemia. Status post blood transfusion and IV DDAVP. Allergic to MIRNA. 4. Hemorrhagic cyst. Seen by urology. 5. Chronic kidney disease mineral bone disease maintained on PhosLo and calcitriol. Plan: Hemodialysis tomorrow. Awaits transfer for possible embolization.
--- NOTE | 2025-03-25 09:58 | P.PN ---
Subjective CT yesterday showed evidence of right-sided retroperitoneal hematoma, she has required 2 units of blood transfusion, hemoglobin is stable over the last 12 hours. She continues to be tachycardic in the 110s. She still having intractable right flank pain that is not controlled with current pain regimen Objective - Vital Signs Vital signs: Vital Signs Temp 99.3 F 03/25/25 07:42 Pulse 119 H 03/25/25 07:42 Resp 17 03/25/25 07:42 BP 136/78 03/25/25 07:42 Pulse Ox 95 03/25/25 07:42 FiO2 Intake & Output 03/24/25 03/25/25 03/25/25 18:59 06:59 18:59 Intake Total 1970 320 128 Output Total 900 Balance 1070 320 128 Weight 67.5 kg Intake: IV 10 10 10 Invasive Line 3 10 10 10 Intake, IV Titration 50 Amount Desmopressin Acetate 18 50 mcg In Sodium Chloride 0. 9% 50 ml @ 200 mls/hr IVPB ONCE ONE Rx#: [id number] Oral 700 118 Blood Product 310 310 Rc As-1 Unit 310 [id number] Rc As-1 Unit 310 [id number] Hemodialysis 900 Output: Hemodialysis 900 Hemodialysis Net Amount 0 Other: Voiding Method Toilet Toilet # Voids 4 1 - Constitutional General appearance: Present: no acute distress - Gastrointestinal General gastrointestinal: Present: soft, tenderness (Right flank and right lower quadrant). Absent: distended - Psychiatric Psychiatric: Present: A&O x's 3 - Labs CBC & Chem 7: 03/25/25 05:59 03/25/25 05:59 Labs: Abnormal Lab Results - Last 24 Hours (Table) 03/24/25 03/24/25 03/25/25 Range/Units 08:11 18:13 01:57 WBC (4.50-10.00) 10*3/uL RBC 2.25 L 2.63 L (4.10-5.20) 10*6/uL Hgb 7.0 L 8.2 L (12.0-15.0) g/dL Hct 20.8 L 24.1 L (37.2-46.3) % Immature Gran # (0.00-0.04) 10*3/uL Neutrophils # (1.80-7.70) 10*3/uL Monocytes # (0.20-1.00) 10*3/uL Sodium (137-145) mmol/L Chloride (98-107) mmol/L BUN (7-17) mg/dL Creatinine (0.52-1.04) mg/dL Glucose (74-99) mg/dL Phosphorus (2.5-4.5) mg/dL Crossmatch See Detail 03/25/25 03/25/25 Range/Units 05:59 05:59 WBC 15.13 H (4.50-10.00) 10*3/uL RBC 2.88 L (4.10-5.20) 10*6/uL Hgb 8.7 L (12.0-15.0) g/dL Hct 26.3 L (37.2-46.3) % Immature Gran # 0.11 H (0.00-0.04) 10*3/uL Neutrophils # 11.74 H (1.80-7.70) 10*3/uL Monocytes # 1.15 H (0.20-1.00) 10*3/uL Sodium 136 L (137-145) mmol/L Chloride 93 L (98-107) mmol/L BUN 31 H (7-17) mg/dL Creatinine 7.23 H* (0.52-1.04) mg/dL Glucose 104 H (74-99) mg/dL Phosphorus 6.9 H (2.5-4.5) mg/dL Crossmatch Assessment and Plan Assessment: This is a 29-year-old female with history of polycystic kidney disease on hemodialysis. History of right-sided hemorrhagic cyst, follow-up CT this showed evidence of a large hematoma inferior to the kidney and multiple renal cysts. She is tachycardic heart rate in the 110s to 120s. She is maintaining her blood pressure. She has required 2 units of blood, hemoglobin has been stable for the last 12 hours but she continues to be tachycardic at this time given the finding of CT and the anemia, I recommend transferring patient to a tertiary center with IR ability for possible embolization. - Keep bedrest - CBC every 6, continue transfusion as needed - Recommend transferring to a facility with interventional radiology and ability for embolization. - Continue pain control
[2025-03-25 12:19] LABS: HCT 21.7 % (37.2-46.3); HGB 7.4 g/dL (12.0-15.0); MCH 31.1 pg (27.0-32.0); MCHC 34.1 g/dL (32.0-37.0); MCV 91.2 fL (80.0-97.0); Mean Platelet Volume 9.3 fL (9.5-12.2); Platelet Count 152 10*3/uL (140-440); RBC 2.38 10*6/uL (4.10-5.20); RDW 15.9 % (11.5-14.5); WBC 10.55 10*3/uL (4.50-10.00)
[2025-03-25] MEDS: traMADol 50 MG TAB PO PRN (12:49)
[2025-03-25] MEDS ORDERED: traMADol 50 MG TAB PO SCH (13:00)
[2025-03-25] MEDS: methocarbamoL 750 MG TAB PO PRN (13:42)
[2025-03-25 16:05] VITALS: BP 126/79; PULSE 111; TEMP 98.5
[2025-03-25 18:07] LABS: HCT 22.6 % (37.2-46.3); HGB 7.7 g/dL (12.0-15.0); MCH 31.3 pg (27.0-32.0); MCHC 34.1 g/dL (32.0-37.0); MCV 91.9 fL (80.0-97.0); Mean Platelet Volume 9.9 fL (9.5-12.2); Platelet Count 169 10*3/uL (140-440); RBC 2.46 10*6/uL (4.10-5.20); RDW 15.9 % (11.5-14.5); WBC 11.17 10*3/uL (4.50-10.00)
== END 2025-03-25 18:36 | disposition short-term general hospital (02) | DRG 698 ==
LOC: EC 00:21 → 3SCARD 05:37 → OBSVTOIN 03-24 08:43
PROVIDERS: ADMIT Internal Medicine; ATTEND Internal Medicine
PROC: 5A1D70Z Performance of Urinary Filtration, Intermittent, Less than 6 Hours Per Day (ICD-10-PCS; principal; 2025-03-24)
PROC: 30233N1 Transfusion of Nonautologous Red Blood Cells into Peripheral Vein, Percutaneous Approach (ICD-10-PCS; 2025-03-24)
DX: Q61.2 Polycystic kidney, adult type (principal); K68.3 Retroperitoneal hematoma; D62 Acute posthemorrhagic anemia; N18.6 End stage renal disease; I12.0 Hypertensive chronic kidney disease with stage 5 chronic kidney disease or end stage renal disease; D63.1 Anemia in chronic kidney disease; Z99.2 Dependence on renal dialysis; R00.0 Tachycardia, unspecified; K21.9 Gastro-esophageal reflux disease without esophagitis; E87.5 Hyperkalemia; M89.8X9 Other specified disorders of bone, unspecified site; Z87.891 Personal history of nicotine dependence; Z88.6 Allergy status to analgesic agent; Z88.5 Allergy status to narcotic agent
CPT/HCPCS: 36415; 74176; 80048; 80053; 81001; 81025; 83605; 84100; 85025; 85027; 86850; 86900; 86901; 86920; 90935; 96361; 96374; 96375; 96376; 99285